=== PATIENT | male | born 1955 | race Caucasian/White ===

== ENCOUNTER → 2017-01-28 | Outpatient (CLI) | payer MEDICAID, MEDICARE ==
[~2017-01-28] MED LIST: ALPR2TAB2 PO; CYCL10TA9; CYMBALTA; DULO60CA6 PO; ESCI20TA2; MIRT30TA PO; NF-ESOM40C PO; OXYC30TA PO; RELEFEN; Remeron; TIZA4CAP PO; TRAZ300T3
--- NOTE | 2017-01-28 17:20 | Diagnostic Imaging Report ---
EXAMINATION: PET-CT TECHNIQUE: Serum glucose level at the time of the study is: 99 mg/dL. 12.3 mCi of FDG was administered intravenously followed by obtaining PET images with corresponding noncontrast CT scan images. The CT scan was performed for anatomic correlation and attenuation correction and was not performed according to the diagnostic protocol of the areas covered. The scan was performed from the head to mid thighs. 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 FINDINGS: There is a left parotid space mass measuring 4.8 x 3.2 cm with avid FDG uptake and maximum SUV of 18.8. No other suspicious mass or significantly enlarged hypermetabolic lymph nodes are seen in the neck. The brain demonstrates symmetric FDG uptake. There is mild to moderate increased FDG uptake along lateral left paraspinal muscles in the posterior left side of the neck probably related to physiologic uptake with no definitive underlying mass seen on the localizer CT. If the patient has symptoms in the posterior left side of the neck, then MRI can better evaluate the soft tissues and rule out a corresponding intramuscular mass. There is moderate hypermetabolism seen in the right hilum with maximum SUV of 5.5. There is soft tissue fullness in this region on the unenhanced exam CT. In this location, this could represent a hilar lymph node or potentially a central lung nodule. There is another focus of hypermetabolism more anteriorly and medially seen within the medial aspect of the right middle lobe. In the abdomen or pelvis, there is excretion of the tracer in the urinary tract with no suspicious hypermetabolic mass seen. Nonspecific mild increased FDG activity in the osseous structures is noted with no intense hypermetabolic osseous mass to suggest metastasis is identified. IMPRESSION: 1. There is a dominant markedly avid hypermetabolic large mass seen in the left parotid gland. 2. There is moderate hypermetabolism in medial right middle lobe pulmonary nodule measuring 2.3 cm and a right hilar lymph node. 3. 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 Dictated by: Dictated on workstation # [id number]
== END ==
LOC: RAD 07:56
PROVIDERS: ATTEND Internal Medicine Hematology & Oncology
DX: C80.1 Malignant (primary) neoplasm, unspecified (principal); R22.1 Localized swelling, mass and lump, neck; R91.1 Solitary pulmonary nodule

== ENCOUNTER 2017-01-31 05:47 | Outpatient (CLI) | payer MEDICARE, MEDICAID ==
[~2017-01-31] VITALS: Ht 182.9 cm; Wt 86.2 kg
[2017-01-31] MEDS ORDERED: GABA-490 PO (12:19)
[2017-01-31] MEDS ORDERED: OMEP40CA36 PO (12:19)
[2017-01-31] MEDS ORDERED: MORP60TA52 PO (12:19)
[2017-01-31] MEDS ORDERED: FLUT1AER IH (12:19)
[2017-01-31] MEDS ORDERED: QUET300T44 PO (12:19)
[2017-01-31] MEDS ORDERED: QUET25TA73 PO (12:19)
[2017-01-31] MEDS ORDERED: NABU500T PO (12:19)
[2017-01-31] MEDS ORDERED: CLON1TAB27 PO (12:19)
[2017-01-31] MEDS ORDERED: RT-ALBUINH IH (12:19)
[2017-01-31] MEDS ORDERED: TIZA4CAP8 PO (12:19)
--- NOTE | 2017-02-05 08:59 | Pulmonary Procedures ---
Pulmonary Procedures Date of Procedure Date of Service: Feb 05, 2017 Bronch Bronchoscopy with RML BAL, EBUS with bx of station 7 and 10R lymph nodes Preop DX: [mediastinal lymphadenopathy] PostOP DX: same, no endobronchial lesions Complications: None Pt was sedated per anesthesia. Bronchoscopy was advanced through the ED tube and an anatomical undertaken down to the segmental bronchi bilaterally. No endobronchial lesions noted. BAL from RML was obtained. EBUS was then advanced through ET tube and the mediastinum was US. Station [7] and [10R] lymph nodes were sampled via needle bx under US guidance. Pt tolerated procedure well. No complications noted. ELY STREETER DO Feb 05, 2017 08:59
--- NOTE | 2017-02-05 09:00 | Progress Note-Pre Operative ---
Pre-Operative Progress Note H&P Reviewed The H&P was reviewed, patient examined and no changes noted. Date Seen by Provider: Feb 05, 2017 Time Seen by Provider: 08:59 Date H&P Reviewed: Feb 05, 2017 Time H&P Reviewed: 08:59 Pre-Operative Diagnosis: lung mass ELY STREETER DO Feb 05, 2017 08:59
== END 2017-01-31 12:20 ==
LOC: PREOP 05:47
PROVIDERS: ATTEND Internal Medicine Critical Care Medicine
DX: Z01.818 Encounter for other preprocedural examination (principal); J45.909 Unspecified asthma, uncomplicated; J44.9 Chronic obstructive pulmonary disease, unspecified

== ENCOUNTER 2017-02-05 07:30 | Day surgery (SDC) | payer MEDICAID, MEDICARE ==
[~2017-02-05] VITALS: Ht 182.9 cm; Wt 86.2 kg
[~2017-02-05 07:30] MED LIST changes: +CLON1TAB27 PO; +FLUT1AER IH; +GABA-490 PO; +LIDOCAINE 4% INJ (XYLOCAINE) 5ML AMP INJ ONE; +LIDOCAINE PF 1% 2 ML AMP INJ ONE; +MORP60TA52 PO; +NABU500T PO; +OMEP40CA36 PO; +QUET25TA73 PO; +QUET300T44 PO; +RT-ALBUINH IH; +TIZA4CAP8 PO
--- OUTSIDE RECORDS SUMMARY | 2017-02-05 07:35 | XMS REPORT ---
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
--- OUTSIDE RECORDS SUMMARY | 2017-02-05 07:35 | XMS REPORT ---
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 [address]-84 10 mg Orally 3 times a day Feb 20, 2015 1 tablet as needed MS Contin [facility] [address]-48 60 mg Orally every 12 hrs Mar 06, 2015 1 tablet Results No Known Results Summary Purpose [employer] Submission
--- OUTSIDE RECORDS SUMMARY | 2017-02-05 07:35 | XMS REPORT ---
Author FARZAD Donovan Organization [employer] Address Unknown Phone Unavailable Care Team Providers Care Features Editor Name Role Phone FARZAD GONZÁLES Unavailable Allergies [...] Z87.39 Active Problem Anxiety F41.9 Active Medications No Known Medications Results No Known Results Summary Purpose [employer] Submission
--- OUTSIDE RECORDS SUMMARY | 2017-02-05 07:35 | XMS REPORT ---
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 Active 131437691 Problem Gastroesophageal reflux disease without esophagitis K21.9 Active 649528805 Problem Other chronic pain G89.29 Active 44642263 Problem Other male erectile dysfunction N52.8 Active 658183192 Problem Chronic obstructive pulmonary disease with acute exacerbation J44.1 Active 179729942 Problem History of chronic back pain Z87.39 Active 377292326 Problem Depression F32.9 Active 08566728 Problem GERD (gastroesophageal reflux disease) K21.9 Active 171818378 Problem Hallucinogen psychosis, 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 023021809 Problem Anxiety F41.9 Active 94760924 ALLERGIES No Information SOCIAL HISTORY Never Assessed PLAN OF CARE VITAL SIGNS MEDICATIONS Medication Instructions Dosage Frequency Start Date End Date Duration Status Oxycodone HCl 10 mg Orally 3 times a day 1 tablet as needed 8h Mar, 28 days Active Xanax 1 MG Orally 2 times a day 1 tablet 12h Nov, 28 days Active Soma 350 MG Orally 3 times a day 1 tablet as needed 8h Dec, 28 days Active MS Contin 60 mg Orally every 12 hrs 1 tablet 12h Mar, 28 days Active RESULTS No Results PROCEDURES No Known procedures IMMUNIZATIONS No Known Immunizations MEDICAL (GENERAL) HISTORY Type Description Date Medical History chronic pain, back, leg, knee hip, arm and shoulder Medical History depression Medical History anxiety Surgical History left knee surgery Hospitalization History surgery Hospitalization History pneumonia Hospitalization History mental health stay 12/06/14 Hospitalization History went to ER to see if would give meds and would not help with meds. 04/2015
--- OUTSIDE RECORDS SUMMARY | 2017-02-05 07:35 | XMS REPORT ---
Author Author FARZAD GONZÁLES Organization [facility] Address [address] [place] [address] Care Team Providers Care Manufacturer'S Service Representative Name Role Phone NINFA GONZÁLESNETTE Unavailable PROBLEMS Type Condition ICD9-CM Code [id number] Code Onset Dates Condition Status SNOMED Code Problem Insomnia G47.00 Active 821381650 Problem Alcohol abuse F10.10 Active 29272245 Problem B12 deficiency anemia D51.9 Active 72492580 Problem Chronic fatigue R53.82 Active 13992073 Problem 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 Active 005688254 Problem Gastroesophageal reflux disease without esophagitis K21.9 Active 952313705 Problem Other chronic pain G89.29 Active 33565403 Problem Other male erectile dysfunction N52.8 Active 326377056 Problem Chronic obstructive pulmonary disease with acute exacerbation J44.1 Active 586823992 Problem History of chronic back pain Z87.39 Active 826648607 Problem Depression F32.9 Active 59314748 Problem GERD (gastroesophageal reflux disease) K21.9 Active 604610251 Problem Hallucinogen psychosis, 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
--- OUTSIDE RECORDS SUMMARY | 2017-02-05 07:35 | XMS REPORT ---
Author Author FARZAD GONZÁLES Organization [facility] Address [address] [place] [address] Care Team Providers Care Sawyer Cork Slabs Name Role Phone NINFA GONZÁLESNETTE Unavailable PROBLEMS Type Condition ICD9-CM Code [id number] Code Onset Dates Condition Status SNOMED Code Problem Insomnia G47.00 Active 245422009 Problem Alcohol abuse F10.10 Active 61865352 Problem B12 deficiency anemia D51.9 Active 58549967 Problem Chronic fatigue R53.82 Active 12835895 Problem 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 Active 413810082 Problem Gastroesophageal reflux disease without esophagitis K21.9 Active 179162181 Problem Other chronic pain G89.29 Active 53016956 Problem Other male erectile dysfunction N52.8 Active 588528568 Problem Chronic obstructive pulmonary disease with acute exacerbation J44.1 Active 031170110 Problem History of chronic back pain Z87.39 Active 036890154 Problem Depression F32.9 Active 82730717 Problem GERD (gastroesophageal reflux disease) K21.9 Active 036380759 Problem Hallucinogen psychosis, 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 470050507 Problem Anxiety F41.9 Active 87390613 ALLERGIES Unknown Allergies SOCIAL HISTORY No smoking Hx information available PLAN OF CARE VITAL SIGNS MEDICATIONS Medication Instructions Dosage Frequency Start Date End Date Duration Status MS Contin 60 mg Orally every 12 hrs 1 tablet 12h Feb, 28 days Active Soma 350 MG Orally 3 times a day 1 tablet as needed 8h Dec, 28 days Active Xanax 1 MG Orally 2 times a day 1 tablet 12h Nov, 28 days Active Oxycodone HCl 10 mg Orally 3 times a day 1 tablet as needed 8h Feb, 28 days Active RESULTS No Results PROCEDURES No Known procedures IMMUNIZATIONS No Known Immunizations
--- OUTSIDE RECORDS SUMMARY | 2017-02-05 07:35 | XMS REPORT ---
Author Author FARZAD GONZÁLES Organization [facility] Address [address] [place] [address] Care Team Providers Care Solar Panel Installation Supervisor Name Role Phone FARZAD GONZÁLES Unavailable PROBLEMS Type Condition ICD9-CM Code [id number] Code Onset Dates Condition Status SNOMED Code Problem Insomnia G47.00 Active 878025717 Problem Alcohol abuse F10.10 Active 77416602 Problem B12 deficiency anemia D51.9 Active 52229246 Problem Chronic fatigue R53.82 Active 40484866 Problem 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 Active 199442917 Problem Gastroesophageal reflux disease without esophagitis K21.9 Active 246016469 Problem Other chronic pain G89.29 Active 67041863 Problem Other male erectile dysfunction N52.8 Active 170096637 Problem Chronic obstructive pulmonary disease with acute exacerbation J44.1 Active 614039038 Problem History of chronic back pain Z87.39 Active 435630441 Problem Depression F32.9 Active 96893262 Problem GERD (gastroesophageal reflux disease) K21.9 Active 234661717 Problem Hallucinogen psychosis, 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
--- OUTSIDE RECORDS SUMMARY | 2017-02-05 07:35 | XMS REPORT ---
Author FARZAD Donovan [facility] e[employer] Address Unknown Phone Unavailable Care Team Providers Care Preschool Director Name Role Phone FARZAD GONZÁLES Unavailable Allergies, Adverse Reactions, Alerts Substance Reaction Event Type N.K.D.A. 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 [address]-97 1 MG Orally 3 times a day Dec 19, 2014 1 tablet Nabumetone [facility] [address]-67 500 MG Orally Twice a day 1 tablet Remeron [facility] [address]-34 30 MG Orally Once a day 1 tablet before bedtime in the evening Seroquel [facility] [address]-61 50 MG Orally four times a day and 100 mg at bedtime 1 tablet Oxycodone HCl [facility] [address]-55 30 MG Orally every 6 hrs 1 tablet as needed Nexium [facility] [address]-58 40 MG Orally Once a day 1 capsule Zanaflex [facility] [address]-03 4 MG Orally every 8 hrs 1 tablet as needed Cymbalta [facility] [address]-56 60 MG Orally Once a day 1 capsule Procedures Procedure Coding System Code Date Office Visit, New Pt., Level 4 CPT-4 01337 Dec 19, 2014 Vital Signs Date/Time: Dec 19, 2014 Temperature 98.5 F Weight 183 lbs Height 72 in BMI 24.82 Index Blood Pressure Diastolic 86 mmHg Blood Pressure Systolic 140 mmHg Cardiac Monitoring Heart Rate 84 bpm Results No Known Results Summary Purpose eClinicalWorks Submission
--- OUTSIDE RECORDS SUMMARY | 2017-02-05 07:35 | XMS REPORT ---
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 Active 426597198 Problem Gastroesophageal reflux disease without esophagitis K21.9 Active 062130397 Problem Other chronic pain G89.29 Active 73523608 Problem Other male erectile dysfunction N52.8 Active 179017901 Problem Chronic obstructive pulmonary disease with acute exacerbation J44.1 Active 627765751 Problem History of chronic back pain Z87.39 Active 058370610 Problem Depression F32.9 Active 32585537 Problem GERD (gastroesophageal reflux disease) K21.9 Active 832792178 Problem Hallucinogen psychosis, 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
--- OUTSIDE RECORDS SUMMARY | 2017-02-05 07:35 | XMS REPORT ---
Author FARZAD Donovan Organization [employer] Address Unknown Phone Unavailable Care Team Providers Care Bilingual Sales Consultant Name Role Phone FARZAD GONZÁLES CP Unavailable [...]
--- OUTSIDE RECORDS SUMMARY | 2017-02-05 07:35 | XMS REPORT ---
Author Author FARZAD GONZÁLES Organization [facility] Address [address] [place] [address] Care Team Providers Care Plant Physiologist Name Role Phone GONZÁLES FARZAD Unavailable PROBLEMS Type Condition ICD9-CM Code [id number] Code Onset Dates Condition Status SNOMED Code Problem Insomnia G47.00 Active 766515400 Problem Alcohol abuse F10.10 Active 77161714 Problem B12 deficiency anemia D51.9 Active 86464948 Problem Chronic fatigue R53.82 Active 59335823 Problem 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 Active 011403972 Problem Gastroesophageal reflux disease without esophagitis K21.9 Active 257010309 Problem Other chronic pain G89.29 Active 24359984 Problem Other male erectile dysfunction N52.8 Active 186216723 Problem Chronic obstructive pulmonary disease with acute exacerbation J44.1 Active 390789138 Problem History of chronic back pain Z87.39 Active 855996316 Problem Depression F32.9 Active 54964117 Problem GERD (gastroesophageal reflux disease) K21.9 Active 409871060 Problem Hallucinogen psychosis, 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
--- OUTSIDE RECORDS SUMMARY | 2017-02-05 07:36 | XMS REPORT ---
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
--- OUTSIDE RECORDS SUMMARY | 2017-02-05 07:36 | XMS REPORT ---
Author FARZAD Donovan [facility] e[employer] Address Unknown Phone Unavailable Care Team Providers Care Retail Branch Manager Name Role Phone FARZAD GONZÁLES Unavailable Allergies, Adverse Reactions, Alerts Substance Reaction Event Type N.K.D.A. 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 Problem History of chronic back pain Z87.39 Active Problem Anxiety F41.9 Active Assessment B12 deficiency anemia D51.9 Active Assessment Insomnia G47.00 Active Assessment Depression F32.9 Active Assessment Anxiety F41.9 Active Assessment Hallucinogen psychosis, 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 Medications Medication Code System Code Instructions Start Date End Date Status Dosage Seroquel [facility] [address]-78 25 MG Orally 3 times a day Feb 20, 2015 1 tablet Omeprazole [facility] [address]-41 40 mg Orally Once a day June 27, 2015 1 capsule Gabapentin [facility] [address]-98 400 MG Orally Three times a day Mar 06, 2015 1 capsule B Complex Vitamins [place] 0 1 Orally Once a day May 30, 2015 as directed Cymbalta [facility] [address]-14 60 mg Orally Once a day 1 capsule Soma [facility] [address]-34 350 MG Orally 4 times a day Jan 02, 2015 1 tablet as needed Oxycodone HCl [facility] [address]-22 10 mg Orally 3 times a day Feb 20, 2015 1 tablet as needed Nabumetone [facility] [address]-42 500 MG Orally Twice a day 1 tablet Seroquel [facility] [address]-37 100 MG Orally Once a day June 27, 2015 1 tablet at bedtime Nabumetone [facility] [address]-26 500 MG Orally Twice a day September 20, 2015 Dec 19, 2015 1 tablet Nexium [facility] [address]-36 40 MG Orally Once a day 1 capsule MS Contin [facility] [address]-29 60 mg Orally every 12 hrs Mar 06, 2015 1 tablet Xanax [facility] [address]-87 1 MG Orally 3 times a day Dec 19, 2014 1 tablet Procedures Procedure Coding System Code Date Office Visit, Est Pt., Level 4 CPT-4 03986 September 20, 2015 Vital Signs Date/Time: September 20, 2015 Cardiac Monitoring Heart Rate 80 bpm Weight 180 lbs Height 72 in BMI 24.41 Index Blood Pressure Diastolic 56 mmHg Blood Pressure Systolic 97 mmHg Results No Known Results Summary Purpose eClinicalWorks Submission
--- OUTSIDE RECORDS SUMMARY | 2017-02-05 07:36 | XMS REPORT ---
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
--- OUTSIDE RECORDS SUMMARY | 2017-02-05 07:36 | XMS REPORT ---
Author FARZAD Donovan Organization [employer] Address Unknown Phone Unavailable Care Team Providers Care Data Security Analyst Name Role Phone FARZAD GONZÁLES Unavailable Allergies [...]
--- OUTSIDE RECORDS SUMMARY | 2017-02-05 07:36 | XMS REPORT ---
Author Author DEON SPENCE [facility] Address [address] [place] [address] Care Team Providers Care Farm Management Professor Name Role Phone DEON SPENCE Unavailable PROBLEMS Type Condition ICD9-CM Code BDN98-IE Code Onset Dates Condition Status SNOMED Code Problem Insomnia G47.00 Active 632965343 Problem Alcohol abuse F10.10 Active 57797732 Problem B12 deficiency anemia D51.9 Active 20762212 Problem Chronic fatigue R53.82 Active 35835324 Problem 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 Active 220506713 Problem Gastroesophageal reflux disease without esophagitis K21.9 Active 807003567 Problem Other chronic pain G89.29 Active 59833340 Problem Other male erectile dysfunction N52.8 Active 292561880 Problem Chronic obstructive pulmonary disease with acute exacerbation J44.1 Active 539398024 Problem History of chronic back pain Z87.39 Active 931860456 Problem Depression F32.9 Active 40020943 Problem GERD (gastroesophageal reflux disease) K21.9 Active 197933888 Problem Hallucinogen psychosis, 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
--- OUTSIDE RECORDS SUMMARY | 2017-02-05 07:36 | XMS REPORT ---
Author FARZAD Donovan [facility] eClinicalWorks Address Unknown Phone Unavailable Care Team Providers Care Senior Wind Turbine Technician Name Role Phone FARZAD GONZÁLES Unavailable Allergies, [...] Instructions Start Date End Date Status Dosage Cymbalta [facility] [address]-14 60 MG Orally Once a day 1 capsule Nabumetone [facility] [address]-12 500 MG Orally Twice a day 1 tablet Soma [facility] [address]-37 350 MG Orally 2 times a day Jan 02, 2015 1 tablet as needed Xanax [facility] [address]-82 1 MG Orally 3 times a day Dec 19, 2014 1 tablet Oxycodone HCl [facility] [address]-63 30 MG Orally every 6 hrs 1 tablet as needed Remeron [facility] [address]-72 30 MG Orally Once a day 1 tablet before bedtime in the evening Nexium [facility] [address]-33 40 MG Orally Once a day 1 capsule Seroquel [facility] [address]-00 50 MG Orally four times a day and 100 mg at bedtime 1 tablet Procedures Procedure Coding System Code Date Office Visit, Est Pt., Level 4 CPT-4 30305 Jan 02, 2015 Vital Signs Date/Time: Jan 02, 2015 Temperature 98.7 F Weight 179.1 lbs Height 72 in BMI 24.29 Index Blood Pressure Diastolic 68 mmHg Blood Pressure Systolic 112 mmHg Cardiac Monitoring Heart Rate 80 bpm Results No Known Results Summary Purpose eClinicalWorks Submission
--- OUTSIDE RECORDS SUMMARY | 2017-02-05 07:36 | XMS REPORT ---
Author FARZAD Donovan [facility] eClinicalWorks Address Unknown Phone Unavailable Care Team Providers Care Store Detective Name Role Phone FARZAD GONZÁLES Unavailable Allergies, Adverse Reactions, Alerts Substance Reaction Event Type N.K.D.A. Info Not Available Non Drug Allergy Problems Problem Type Condition Code Onset Dates Condition Status Assessment Anxiety F41.9 Active Problem Depression F32.9 Active Assessment History [...] G47.00 Active Assessment Depression F32.9 Active Assessment Alcohol abuse F10.10 Active Assessment GERD (gastroesophageal reflux disease) K21.9 Active Medications Medication Code System Code Instructions Start Date End Date Status Dosage Seroquel [facility] [address]-88 100 MG Orally Once a day Jan 30, 2015 1 tablet at bedtime Oxycodone HCl [facility] [address]-46 10 MG Orally 2 times a day Feb 20, 2015 1 tablet as needed Seroquel [facility] [address]-04 25 MG Orally 3 times a day Feb 20, 2015 1 tablet Soma [facility] [address]-88 350 MG Orally 2 times a day Jan 02, 2015 1 tablet as needed Nabumetone [facility] [address]-49 500 MG Orally Twice a day 1 tablet Nexium [facility] [address]-68 40 MG Orally Once a day 1 capsule Xanax [facility] [address]-57 1 MG Orally 3 times a day Dec 19, 2014 1 tablet Remeron [facility] [address]-83 30 MG Orally Once a day 1 tablet before bedtime in the evening Cymbalta [facility] [address]-55 60 MG Orally Once a day 1 capsule OxyContin [facility] [address]-52 60 MG Orally every 12 hrs Feb 20, 2015 1 tablet Procedures Procedure Coding System Code Date VITAMIN B-12 CPT-4 77499 Feb 20, 2015 BLOOD FOLIC ACID SERUM CPT-4 00375 Feb 20, 2015 COMPLETE CBC W/AUTO DIFF WBC CPT-4 49946 Feb 20, 2015 LIPID PANEL CPT-4 77000 Feb 20, 2015 COMPREHEN METABOLIC PANEL CPT-4 89054 Feb 20, 2015 VENIPUNCT, ROUTINE* CPT-4 35530 Feb 20, 2015 Office Visit, Est Pt., Level 4 CPT-4 59284 Feb 20, 2015 Vital Signs Date/Time: Feb 20, 2015 Temperature 97.1 F Weight 165.6 lbs Height 72 in BMI 22.46 Index Blood Pressure Diastolic 64 mmHg Blood Pressure Systolic 110 mmHg Cardiac Monitoring Heart Rate 68 bpm Results Name Result Date Reference Range Unit Abnormality Flag FOLATE (FOLIC ACID) ----Folate (Folic Acid), Serum >20.0 [id number] >3.0 ng/mL CBC ----Basos 0 97481634 % ----MCV 84 41553495 79-97 fL ----Hematocrit 45.8 06530677 37.5-51.0 % ----Eos 1 29568431 % ----MCHC 34.3 51832127 31.5-35.7 g/dL ----Monocytes 9 44922133 % ----MCH 28.8 61234332 26.6-33.0 pg ----Lymphs 21 74232417 % ----Eos (Absolute) 0.1 27223292 0.0-0.4 x10E3/uL ----WBC 11.2 83689132 3.4-10.8 x10E3/uL H ----Monocytes(Absolute) 1.0 14679220 0.1-0.9 x10E3/uL H ----Lymphs (Absolute) 2.3 74120663 0.7-3.1 x10E3/uL ----Hemoglobin 15.7 40420077 12.6-17.7 g/dL ----Neutrophils (Absolute) 7.8 38262404 1.4-7.0 x10E3/uL H ----RBC 5.46 46702513 4.14-5.80 x10E6/uL ----Immature Grans (Abs) 0.0 30578476 0.0-0.1 x10E3/uL ----Immature Granulocytes 0 39691823 % ----Neutrophils 69 74965388 % ----Baso (Absolute) 0.0 59827351 0.0-0.2 x10E3/uL ----RDW 15.3 27583225 12.3-15.4 % ----Platelets 316 89240689 150-379 x10E3/uL ROUTINE VENIPUNCTURE VITAMIN B12 ----Vitamin B12 1682 95069550 211-946 pg/mL H LIPID PANEL ----LDL Cholesterol Calc 127 51763616 0-99 mg/dL H ----VLDL Cholesterol Rad 23 78708832 5-40 mg/dL ----HDL Cholesterol 71 54168616 >39 mg/dL ----Triglycerides 113 88215414 0-149 mg/dL ----Cholesterol, Total 221 58725877 100-199 mg/dL H CMP ----Creatinine, Serum 0.83 64539140 0.76-1.27 mg/dL ----BUN 12 98981731 6-24 mg/dL ----eGFR If Africn Am 112 92531255 >59 mL/min/1.73 ----eGFR If NonAfricn Am 97 98691328 >59 mL/min/1.73 ----Sodium, Serum 137 31702920 134-144 mmol/L ----BUN/Creatinine Ratio 14 20150220 9-20 ----Chloride, Serum 97 03828343 97-108 mmol/L ----Potassium, Serum 3.8 02348781 3.5-5.2 mmol/L ----Carbon Dioxide, Total 24 69505432 18-29 mmol/L ----Protein, Total, Serum 7.6 60091321 6.0-8.5 g/dL ----Calcium, Serum 9.4 11807635 8.7-10.2 mg/dL ----Globulin, Total 3.1 49502655 1.5-4.5 g/dL ----Albumin, Serum 4.5 20150220 3.5-5.5 g/dL ----Bilirubin, Total 0.3 20150220 0.0-1.2 mg/dL ----Glucose, Serum 120 20150220 65-99 mg/dL H ----A/G Ratio 1.5 20150220 1.1-2.5 ----ALT (SGPT) 61 20150220 0-44 IU/L H ----Alkaline Phosphatase, S 108 20150220 39-117 IU/L ----AST (SGOT) 48 05239738 0-40 IU/L H Summary Purpose eClinicalWorks Submission
--- OUTSIDE RECORDS SUMMARY | 2017-02-05 07:36 | XMS REPORT ---
Author FARZAD Donovan Organization eClinicalWorks Address Unknown Phone Unavailable Care Team Providers Care Speech Pathology Supervisor Name Role Phone FARZAD GONZÁLES Unavailable Allergies [...] Instructions Start Date End Date Status Dosage [facility] [address]-33 350 MG Orally 4 times a day Jan 02, 2015 1 tablet as needed Results No Known Results Summary Purpose eClinicalWorks Submission
--- OUTSIDE RECORDS SUMMARY | 2017-02-05 07:36 | XMS REPORT ---
Author FARZAD Donovan Organization eClinicalWorks Address Unknown Phone Unavailable Care Team Providers Care Electrical Transmission Engineer Name Role Phone FARZAD GONZÁLES Unavailable Allergies [...]
--- OUTSIDE RECORDS SUMMARY | 2017-02-05 07:36 | XMS REPORT ---
Author FARZAD Donovan Organization eClinicalWorks Address Unknown Phone Unavailable Care Team Providers Care Entomology Teacher Name Role Phone FARZAD GONZÁLES Unavailable Allergies [...] Start Date End Date Status Dosage Xanax [facility] [address]-88 1 MG Orally 3 times a day Dec 19, 2014 1 tablet Oxycodone HCl [facility] [address]-92 10 mg Orally 3 times a day Jan 10, 2016 1 tablet as needed MS Contin [facility] [address]-65 60 mg Orally every 12 hrs Jan 10, 2016 1 tablet Results No Known Results Summary Purpose eClinicalWorks Submission
--- OUTSIDE RECORDS SUMMARY | 2017-02-05 07:36 | XMS REPORT ---
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
--- OUTSIDE RECORDS SUMMARY | 2017-02-05 07:36 | XMS REPORT ---
Author Author FARZAD GONZÁLES Organization [facility] Address [address] [place] [address] Care Team Providers Care Dramatic Critic Name Role Phone FARZAD GONZÁLES Unavailable PROBLEMS Type Condition ICD9-CM Code EBF27-PW Code Onset Dates Condition Status SNOMED Code Problem Insomnia G47.00 Active 300907833 Problem Alcohol abuse F10.10 Active 12458242 Problem B12 deficiency anemia D51.9 Active 01162836 Problem Chronic fatigue R53.82 Active 01510680 Problem 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 Active 933662680 Problem Gastroesophageal reflux disease without esophagitis K21.9 Active 590243294 Problem Other chronic pain G89.29 Active 27370799 Problem Other male erectile dysfunction N52.8 Active 067878947 Problem Chronic obstructive pulmonary disease with acute exacerbation J44.1 Active 481277087 Problem History of chronic back pain Z87.39 Active 906234863 Problem Depression F32.9 Active 75611374 Problem GERD (gastroesophageal reflux disease) K21.9 Active 907723195 Problem Hallucinogen psychosis, 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
--- OUTSIDE RECORDS SUMMARY | 2017-02-05 07:37 | XMS REPORT ---
Author FARZAD Donovan Organization eClinicalWorks Address Unknown Phone Unavailable Care Team Providers Care Wool Fleece Sorter Name Role Phone FARZAD GONZÁLES CP Unavailable [...]
--- OUTSIDE RECORDS SUMMARY | 2017-02-05 07:37 | XMS REPORT ---
Author FARZAD Donovan [facility] eClinicalWorks Address Unknown Phone Unavailable Care Team Providers Care Getter Filler Name Role Phone FARZAD GONZÁLES Unavailable Allergies, [...] Instructions Start Date End Date Status Dosage Nabumetone [facility] [address]-19 500 MG Orally Twice a day 1 tablet Seroquel [facility] [address]-21 25 MG Orally 3 times a day Feb 20, 2015 1 tablet Oxycodone HCl [facility] [address]-81 10 MG Orally 2 times a day Feb 20, 2015 1 tablet as needed MS Contin [facility] [address]-45 60 MG Orally every 12 hrs Mar 06, 2015 1 tablet Cymbalta [facility] [address]-25 60 MG Orally Once a day 1 capsule Gabapentin [facility] [address]-43 400 MG Orally Three times a day Mar 06, 2015 1 capsule Remeron [facility] [address]-12 30 MG Orally Once a day 1 tablet before bedtime in the evening MS Contin [facility] [address]-93 60 MG Orally every 12 hrs Mar 06, 2015Mar 1 tablet Soma [facility] [address]-37 350 MG Orally 2 times a day Jan 02, 2015 1 tablet as needed Seroquel [facility] [address]-92 100 MG Orally Once a day Jan 30, 2015 1 tablet at bedtime Xanax [facility] [address]-52 1 MG Orally 3 times a day Dec 19, 2014 1 tablet Nexium [facility] [address]-74 40 MG Orally Once a day 1 capsule Procedures Procedure Coding System Code Date Office Visit, Est Pt., Level 4 CPT-4 60141 Mar 06, 2015 Vital Signs Date/Time: Mar 06, 2015 Temperature 98.9 F Weight 170.2 lbs Height 72 in BMI 23.08 Index Blood Pressure Diastolic 90 mmHg Blood Pressure Systolic 128 mmHg Cardiac Monitoring Heart Rate 88 bpm Results No Known Results Summary Purpose eClinicalWorks Submission
--- OUTSIDE RECORDS SUMMARY | 2017-02-05 07:37 | XMS REPORT ---
Author Author FARZAD GONZÁLES Organization [facility] Address [address] [place] [address] Care Team Providers Care Material Requirements Planning Manager Name Role Phone NINFA GONZÁLESNETTE Unavailable PROBLEMS Type Condition ICD9-CM Code QCT09-XL Code Onset Dates Condition Status SNOMED Code Problem Alcohol abuse F10.10 Active 85682663 Problem Gastroesophageal reflux disease without esophagitis K21.9 Active 185366895 Problem Other chronic pain G89.29 Active 09109764 Problem Encounter for therapeutic drug level monitoring Z51.81 Active 350311084 Problem Insomnia, unspecified type G47.00 Active 288926615 Problem Other male erectile dysfunction N52.8 Active 735994916 Problem Chronic obstructive pulmonary disease with acute exacerbation J44.1 Active 697985145 Problem Chronic fatigue R53.82 Active 80127752 Problem 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 Active 440248835 Problem Hallucinogen psychosis, 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 835592249 Problem GERD (gastroesophageal reflux disease) K21.9 Active 307625974 Problem Anxiety F41.9 Active 63829992 Problem History of chronic back pain Z87.39 Active 649999895 Problem Insomnia G47.00 Active 583890168 Problem Depression F32.9 Active 54766955 Problem B12 deficiency anemia D51.9 Active 65986476 ALLERGIES No Information SOCIAL HISTORY Never Assessed PLAN OF CARE VITAL SIGNS MEDICATIONS Medication Instructions Dosage Frequency Start Date End Date Duration Status Oxycodone HCl 10 mg Orally 2 times a day 1 tablet as needed 12h Jul, 28 Active MS Contin 60 mg Orally every 12 hrs 1 tablet 12h Jul, 28 days Active Xanax 1 MG Orally 2 times a day 1 tablet 12h 28 days Active Morphine Sulfate ER 15 mg Orally every 12 hrs 1 tablet 12h Jul, 28 days Active RESULTS No Results PROCEDURES [...]
--- OUTSIDE RECORDS SUMMARY | 2017-02-05 07:37 | XMS REPORT ---
Author FARZAD Donoavn Organization eClinicalWorks Address Unknown Phone Unavailable Care Team Providers Care Air Cargo Agent Name Role Phone FARZAD GONZÁLES Unavailable Allergies [...] Start Date End Date Status Dosage Seroquel [facility] [address]-88 100 MG Orally Once a day Jan 30, 2015 1 tablet at bedtime Nabumetone [facility] [address]-02 500 MG Orally Twice a day 1 tablet Cymbalta [facility] [address]-00 60 mg Orally Once a day 1 capsule Nexium [facility] [address]-33 40 mg Orally Once a day 1 capsule Gabapentin [facility] [address]-77 400 MG Orally Three times a day Mar 06, 2015 1 capsule Results No Known Results Summary Purpose eClinicalWorks Submission
--- OUTSIDE RECORDS SUMMARY | 2017-02-05 07:37 | XMS REPORT ---
Author Author FARZAD GONZÁLES Organization [facility] Address [address] [place] [address] Care Team Providers Care Bull Ladle Tender Name Role Phone NINFA GONZÁLESNETTE Unavailable PROBLEMS Type Condition ICD9-CM Code BQL09-LI Code Onset Dates Condition Status SNOMED Code Problem B12 deficiency anemia D51.9 Active 40620004 Problem Other chronic pain G89.29 Active 51293355 Problem Alcohol abuse F10.10 Active 09219428 Problem Insomnia, unspecified type G47.00 Active 291928529 Problem Chronic fatigue R53.82 Active 38680894 Problem Chronic obstructive pulmonary disease with acute exacerbation J44.1 Active 172856596 Problem Gastroesophageal reflux disease without esophagitis K21.9 Active 345051624 Problem 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 Active 143220150 Problem Other male erectile dysfunction N52.8 Active 074908262 Problem Depression F32.9 Active 13749501 Problem GERD (gastroesophageal reflux disease) K21.9 Active 217397975 Problem Hallucinogen psychosis, 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 572401360 Problem Anxiety F41.9 Active 84031416 Problem History of chronic back pain Z87.39 Active 163749927 Problem Insomnia G47.00 Active 080361357 ALLERGIES No Known Allergies SOCIAL HISTORY Never Assessed PLAN OF CARE Activity Details Follow Up 2 Weeks Reason:copd VITAL SIGNS Height 72 in 2016-07-01 Weight 200 lbs 2016-07-01 Temperature 98.1 degrees Fahrenheit 2016-07-01 Heart Rate 78 bpm 2016-07-01 Respiratory Rate 18 2016-07-01 BMI 27.12 kg/m2 2016-07-01 Blood pressure systolic 116 mmHg 2016-07-01 Blood pressure diastolic 78 mmHg 2016-07-01 MEDICATIONS Medication Instructions Dosage Frequency Start Date End Date Duration Status MS Contin 60 mg Orally every 12 hrs 1 tablet June, Active Morphine Sulfate ER 15 mg Orally every 12 hrs 1 tablet 12June, June, 23 days Active Cymbalta 60 mg Orally Once a day 1 capsule 24h Active Seroquel 200 mg Orally Once a day at bedtime 1 tablet at bedtime June, 30 days Active Xanax 1 MG Orally 2 times a day 1 tablet 12h Active Seroquel 25 MG Orally 3 times a day 1 tablet 8h 28 Jan, 2015 30 days Active Oxycodone HCl 10 mg Orally 2 times a day 1 tablet as needed 12h June, 28 Active Nabumetone 500 MG Orally Twice a day 1 tablet 12h 90 days Active B Complex Vitamins 1 Orally Once a day as directed 24h May, Active Tizanidine HCl 4 MG Orally 3 times a day 1 tablet as needed 8h 24 May, 2016 Mar, 90 days Active Gabapentin 400 mg Orally 3 times a day 1 capsule 8h 11 Feb, 2015 Active Omeprazole 40 mg Orally Once a day 1 capsule 24h June, Active ProAir HFA 108 (90 Base) MCG/ACT Inhalation every 4 hrs 2 puffs as needed 4h June, Active Doxycycline Hyclate 100 mg Orally every 12 hrs 1 capsule 12h June, June, 07 days Active RESULTS No Results PROCEDURES Procedure Date Ordered Result Body Site DEPO MEDROL 40 MG/ML July 01, 2016 DEXAMETHASONE 4MG/ML (PER 1 MG) July 01, 2016 THER/PROPH/DIAG INJ, SC/IM July 01, 2016 IMMUNIZATIONS Vaccine Route Administration Date Status DEXAMETHASONE 4MG/ML (PER 1 MG) IM Intramuscular July 01, 2016 Administered DEPO MEDROL 40 MG/ML IM Intramuscular July 01, 2016 Administered MEDICAL (GENERAL) HISTORY Type Description Date Medical [...]
--- OUTSIDE RECORDS SUMMARY | 2017-02-05 07:37 | XMS REPORT ---
Author Author FARZAD GONZÁLES Organization [facility] Address [address] [place] [address] Care Team Providers Care Flight Service Specialist Name Role Phone GONZÁLES, FARZAD Unavailable PROBLEMS Type Condition ICD9-CM Code BJC47-ZF Code Onset Dates Condition Status SNOMED Code Problem B12 deficiency anemia D51.9 Active 31329008 Problem Other chronic pain G89.29 Active 19358260 Problem Alcohol abuse F10.10 Active 60161414 Problem Insomnia, unspecified type G47.00 Active 547845646 Problem Chronic fatigue R53.82 Active 28882245 Problem Chronic obstructive pulmonary disease with acute exacerbation J44.1 Active 187343070 Problem Gastroesophageal reflux disease without esophagitis K21.9 Active 465740045 Problem 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
--- OUTSIDE RECORDS SUMMARY | 2017-02-05 07:37 | XMS REPORT ---
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 183717355 Problem Depression F32.9 Active 06761060 Problem Alcohol abuse F10.10 Active 57567388 Problem Insomnia G47.00 Active 674112380 Problem Anxiety F41.9 Active 66918544 Problem GERD (gastroesophageal reflux disease) K21.9 Active 964208794 Problem B12 deficiency anemia D51.9 Active 24398544 Problem History of chronic back pain Z87.39 Active 592731844 ALLERGIES Unknown Allergies SOCIAL HISTORY No smoking Hx information available PLAN OF CARE VITAL SIGNS MEDICATIONS Medication Instructions Dosage Frequency Start Date End Date Duration Status Oxycodone HCl 10 mg Orally 3 times a day 1 tablet as needed 8h 28 Jan, 2015 Active MS Contin 60 mg Orally every 12 hrs 1 tablet 12h 11 Feb, 2015 Active RESULTS No Results PROCEDURES No Known procedures IMMUNIZATIONS No Known Immunizations
--- OUTSIDE RECORDS SUMMARY | 2017-02-05 07:37 | XMS REPORT ---
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 Active 624145172 Problem Gastroesophageal reflux disease without esophagitis K21.9 Active 678535314 Problem Other chronic pain G89.29 Active 06661798 Problem Other male erectile dysfunction N52.8 Active 665336993 Problem Chronic obstructive pulmonary disease with acute exacerbation J44.1 Active 233443875 Problem History of chronic back pain Z87.39 Active 316744975 Problem Depression F32.9 Active 31704485 Problem GERD (gastroesophageal reflux disease) K21.9 Active 040221061 Problem Hallucinogen psychosis, 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
--- OUTSIDE RECORDS SUMMARY | 2017-02-05 07:37 | XMS REPORT ---
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 Active 303848313 Problem Gastroesophageal reflux disease without esophagitis K21.9 Active 908355037 Problem Other chronic pain G89.29 Active 23484096 Problem Other male erectile dysfunction N52.8 Active 167252210 Problem Chronic obstructive pulmonary disease with acute exacerbation J44.1 Active 947115177 Problem History of chronic back pain Z87.39 Active 557400259 Problem Depression F32.9 Active 56473666 Problem GERD (gastroesophageal reflux disease) K21.9 Active 982365448 Problem Hallucinogen psychosis, 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 013440663 Problem Anxiety F41.9 Active 89098982 ALLERGIES No Information SOCIAL HISTORY Never Assessed PLAN OF CARE VITAL SIGNS MEDICATIONS Medication Instructions Dosage Frequency Start Date End Date Duration Status Seroquel 25 MG Orally 3 times a day 1 tablet 8h Jan, 30 days Active Omeprazole 40 mg Orally Once a day 1 capsule 24h June, 30 days Active Seroquel 100 mg Orally Once a day at bedtime 1 tablet at bedtime June, 30 days Active Gabapentin 400 mg Orally Three times a day 1 capsule 8h Feb, 74 days Active Nabumetone 500 MG Orally Twice a day 1 tablet 12h 90 days Active Cymbalta 60 mg Orally Once a day 1 capsule 24h 30 days Active RESULTS No Results PROCEDURES [...]
--- OUTSIDE RECORDS SUMMARY | 2017-02-05 07:37 | XMS REPORT ---
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 Active 693635851 Problem Gastroesophageal reflux disease without esophagitis K21.9 Active 406226863 Problem Other chronic pain G89.29 Active 17705978 Problem Other male erectile dysfunction N52.8 Active 658647828 Problem Chronic obstructive pulmonary disease with acute exacerbation J44.1 Active 386185199 Problem History of chronic back pain Z87.39 Active 710180813 Problem Depression F32.9 Active 45175412 Problem GERD (gastroesophageal reflux disease) K21.9 Active 520432835 Problem Hallucinogen psychosis, 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 Unknown Non Drug Allergy Mar, Unknown SOCIAL HISTORY No smoking Hx information available PLAN OF CARE Activity Details Follow Up 3 Months Reason: VITAL SIGNS Height 72 in 2016-03-28 Weight 195.0 lbs 2016-03-28 Temperature 97.5 degrees Fahrenheit 2016-03-28 Heart Rate 80 bpm 2016-03-28 Respiratory Rate 20 2016-03-28 BMI 26.44 kg/m2 2016-03-28 Blood pressure systolic 104 mmHg 2016-03-28 Blood pressure diastolic 80 mmHg 2016-03-28 MEDICATIONS Medication Instructions Dosage Frequency Start Date End Date Duration Status Gabapentin 400 MG Orally Three times a day 1 capsule 8h Feb, 67 days Active Nabumetone 500 MG Orally Twice a day 1 tablet 12h 90 days Active B Complex Vitamins 1 Orally Once a day as directed 24h 05 May, 2015 Active Soma 350 MG Orally 3 times a day 1 tablet as needed 8h Dec, Active MS Contin 60 mg Orally every 12 hrs 1 tablet 12h Feb, 28 days Active Cymbalta 60 mg Orally Once a day 1 capsule 24h 30 days Active Seroquel 100 MG Orally Once a day at bedtime 1 tablet at bedtime June, Active Seroquel 25 MG Orally 3 times a day 1 tablet 8h Jan, 30 days Active Omeprazole 40 mg Orally Once a day 1 capsule 24h June, 90 days Active Oxycodone HCl 10 mg Orally 3 times a day 1 tablet as needed 8h Feb, 28 days Active Xanax 1 MG Orally 2 times a day 1 tablet 12h Nov, Active RESULTS Name Result Date Reference Range CBC 2016-03-28 WBC 5.4 3.4-10.8 RBC 5.23 4.14-5.80 Hemoglobin 14.7 12.6-17.7 Hematocrit 45.1 37.5-51.0 MCV 86 79-97 MCH 28.1 26.6-33.0 MCHC 32.6 31.5-35.7 RDW 15.6 12.3-15.4 Platelets 246 150-379 Neutrophils 54 Lymphs 38 Monocytes 5 Eos 2 Basos 1 Immature Cells Neutrophils (Absolute) 2.9 1.4-7.0 Lymphs (Absolute) 2.1 0.7-3.1 Monocytes(Absolute) 0.3 0.1-0.9 Eos (Absolute) 0.1 0.0-0.4 Baso (Absolute) 0.0 0.0-0.2 Immature Granulocytes 0 Immature Grans (Abs) 0.0 0.0-0.1 NRBC Hematology Comments: URINE DRUG SCREEN (IN HOUSE) 2016-03-28 Lot # [id number] Exp date 09/2017 Control + COCAINE Negative AMPH Negative MTD Negative THC Negative OPIATE Positive BENZO Positive PCP negative BAR negative OXY positive MAMP negative TCA Positive BUP negative MDMA Positive AMERITOX 2016-03-28 Xray : Spine, Lumbar 2-3 views (IN HOUSE) 2016-03-28 PROCEDURES Procedure Date Ordered Related Diagnosis Body Site ROUTINE VENIPUNCTURE 2016-03-28 N/A X-RAY EXAM OF LOWER SPINE Mar 28, 2016 DRUG TEST PRSMV DIR OPT OBS Mar 28, 2016 COMPLETE CBC W/AUTO DIFF WBC Mar 28, 2016 No Charge Mar 28, 2016 Office Visit, Est Pt., Level 3 Mar 28, 2016 VENIPUNCT, ROUTINE* Mar 28, 2016 IMMUNIZATIONS No Known Immunizations
--- OUTSIDE RECORDS SUMMARY | 2017-02-05 07:37 | XMS REPORT ---
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 Active 044888818 Problem Gastroesophageal reflux disease without esophagitis K21.9 Active 672437174 Problem Other chronic pain G89.29 Active 88791510 Problem Other male erectile dysfunction N52.8 Active 004993159 Problem Chronic obstructive pulmonary disease with acute exacerbation J44.1 Active 841308238 Problem History of chronic back pain Z87.39 Active 556304057 Problem Depression F32.9 Active 73488611 Problem GERD (gastroesophageal reflux disease) K21.9 Active 560359509 Problem Hallucinogen psychosis, 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
--- OUTSIDE RECORDS SUMMARY | 2017-02-05 07:37 | XMS REPORT ---
Author Author FARZAD GONZÁLES Organization 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 Active 591378382 Problem Gastroesophageal reflux disease without esophagitis K21.9 Active 513237547 Problem Other chronic pain G89.29 Active 17364567 Problem Other male erectile dysfunction N52.8 Active 402935865 Problem Chronic obstructive pulmonary disease with acute exacerbation J44.1 Active 258335709 Problem History of chronic back pain Z87.39 Active 656563547 Problem Depression F32.9 Active 03340810 Problem GERD (gastroesophageal reflux disease) K21.9 Active 004032738 Problem Hallucinogen psychosis, 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
--- OUTSIDE RECORDS SUMMARY | 2017-02-05 07:37 | XMS REPORT ---
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 Active 224281590 Problem Gastroesophageal reflux disease without esophagitis K21.9 Active 530423765 Problem Other chronic pain G89.29 Active 62101261 Problem Other male erectile dysfunction N52.8 Active 784501319 Problem Chronic obstructive pulmonary disease with acute exacerbation J44.1 Active 508054880 Problem History of chronic back pain Z87.39 Active 422583808 Problem Depression F32.9 Active 00945576 Problem GERD (gastroesophageal reflux disease) K21.9 Active 826429874 Problem Hallucinogen psychosis, 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
--- OUTSIDE RECORDS SUMMARY | 2017-02-05 07:38 | XMS REPORT ---
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 335657904 Problem Anxiety F41.9 Active 41452017 Problem GERD (gastroesophageal reflux disease) K21.9 Active 088883587 Problem Depression F32.9 Active 38560008 Problem Gastroesophageal reflux disease without esophagitis K21.9 Active 226828168 Problem Other chronic pain G89.29 Active 90317965 Problem B12 deficiency anemia D51.9 Active 50589841 Problem History of chronic back pain Z87.39 Active 928305756 Problem Alcohol abuse F10.10 Active 05198708 Problem Insomnia G47.00 Active 322820084 ALLERGIES Unknown Allergies SOCIAL HISTORY No smoking Hx information available PLAN OF CARE VITAL SIGNS MEDICATIONS Medication Instructions Dosage Frequency Start Date End Date Duration Status Oxycodone HCl 10 mg Orally 3 times a day 1 tablet as needed 8h Dec, 28 days Active MS Contin 60 mg Orally every 12 hrs 1 tablet 12h Dec, 28 days Active Xanax 1 MG Orally 3 times a day 1 tablet 8h Nov, 28 days Active RESULTS No Results PROCEDURES No Known procedures IMMUNIZATIONS No Known Immunizations
--- OUTSIDE RECORDS SUMMARY | 2017-02-05 07:38 | XMS REPORT ---
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
--- OUTSIDE RECORDS SUMMARY | 2017-02-05 07:38 | XMS REPORT ---
Author FARZAD Donovan [facility] eClinicalWorks Address Unknown Phone Unavailable Care Team Providers Care Senior Statistician Name Role Phone FARZAD GONZÁLES Unavailable Allergies [...] Date End Date Status Dosage Oxycodone HCl [facility] [address]-46 10 mg Orally 3 times a day Feb 20, 2015 1 tablet as needed MS Contin [facility] [address]-48 60 mg Orally every 12 hrs Mar 06, 2015 1 tablet Results No Known Results Summary Purpose eClinicalWorks Submission
--- OUTSIDE RECORDS SUMMARY | 2017-02-05 07:38 | XMS REPORT ---
Author FARZAD Donovan [facility] eClinicalWorks Address Unknown Phone Unavailable Care Team Providers Care Floor Layer Tile Name Role Phone FARZAD GONZÁLES Unavailable Allergies, Adverse Reactions, Alerts Substance Reaction Event Type N.K.D.A. 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 Problem Depression F32.9 Active Problem Anxiety F41.9 Active Problem GERD (gastroesophageal reflux disease) K21.9 Active Assessment B12 deficiency anemia D51.9 Active Assessment Insomnia G47.00 Active Assessment Depression F32.9 Active Assessment Hallucinogen psychosis, 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 Medications Medication Code System Code Instructions Start Date End Date Status Dosage Nabumetone [facility] [address]-12 500 MG Orally Twice a day 1 tablet Remeron [facility] [address]-33 30 MG Orally Once a day 1 tablet before bedtime in the evening Xanax [facility] [address]-14 1 MG Orally 3 times a day Dec 19, 2014 1 tablet Oxycodone HCl [facility] [address]-41 30 MG Orally every 6 hrs Feb 20, 2015 1 tablet as needed Soma [facility] [address]-17 350 MG Orally 2 times a day Jan 02, 2015 1 tablet as needed Seroquel [facility] [address]-54 50 MG Orally four times a day and 100 mg at bedtime 1 tablet Seroquel [facility] [address]-48 100 MG Orally Once a day Jan 30, 2015 1 tablet at bedtime Nexium [facility] [address]-98 40 MG Orally Once a day 1 capsule Cymbalta [facility] [address]-29 60 MG Orally Once a day 1 capsule Procedures Procedure Coding System Code Date B12, VITAMIN (UP TO 1000 MCG) CPT-4 J3420 Jan 30, 2015 THER/PROPH/DIAG INJ, SC/IM CPT-4 34145 Jan 30, 2015 Office Visit, Est Pt., Level 4 CPT-4 59409 Jan 30, 2015 Vital Signs Date/Time: Jan 30, 2015 Temperature 96.9 F Weight 168.3 lbs Height 72 in BMI 22.82 Index Blood Pressure Diastolic 60 mmHg Blood Pressure Systolic 110 mmHg Cardiac Monitoring Heart Rate 82 bpm Results No Known Results Summary Purpose eClinicalWorks Submission
--- OUTSIDE RECORDS SUMMARY | 2017-02-05 07:38 | XMS REPORT ---
Author FARZAD Donovan Organization [employer] Address Unknown Phone Unavailable Care Team Providers Care Telephone Maintenance Mechanic Name Role Phone FARZAD GONZÁLES CP Unavailable [...] Date End Date Status Dosage Oxycodone HCl [facility] [address]-00 30 MG Orally every 6 hrs Feb 20, 2015 1 tablet as needed Results No Known Results Summary Purpose eClinicalWorks Submission
--- OUTSIDE RECORDS SUMMARY | 2017-02-05 07:38 | XMS REPORT ---
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 Active 001226538 Problem Gastroesophageal reflux disease without esophagitis K21.9 Active 298627547 Problem Other chronic pain G89.29 Active 48484853 Problem Other male erectile dysfunction N52.8 Active 685801220 Problem Chronic obstructive pulmonary disease with acute exacerbation J44.1 Active 231495202 Problem History of chronic back pain Z87.39 Active 718184760 Problem Depression F32.9 Active 37283587 Problem GERD (gastroesophageal reflux disease) K21.9 Active 780420031 Problem Hallucinogen psychosis, 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
--- OUTSIDE RECORDS SUMMARY | 2017-02-05 07:38 | XMS REPORT ---
Author FARZAD Donovan Organization [employer] Address Unknown Phone Unavailable Care Team Providers Care Physiological Chemist Name Role Phone FARZAD GONZÁLES Unavailable Allergies [...] Start Date End Date Status Dosage Xanax [facility] [address]-73 1 MG Orally 3 times a day Dec 19, 2014 1 tablet Results No Known Results Summary Purpose eClinicalWorks Submission
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
--- OUTSIDE RECORDS SUMMARY | 2017-02-05 07:38 | XMS REPORT ---
Author FARZAD Donovan [facility] eClinicalWorks Address Unknown Phone Unavailable Care Team Providers Care Financial Foundations Associate Name Role Phone FARZAD GONZÁLES Unavailable Allergies, [...] Active Problem B12 deficiency anemia D51.9 Active Assessment Other chronic pain G89.29 Active Assessment Gastroesophageal reflux disease without esophagitis K21.9 Active Assessment Pain in left shoulder M25.512 Active Assessment Depression F32.9 Active Assessment Anxiety F41.9 Active Assessment B12 deficiency anemia D51.9 Active Assessment Alcohol abuse F10.10 Active Assessment Hallucinogen psychosis, 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 Assessment History of chronic back pain Z87.39 Active Medications Medication Code System Code Instructions Start Date End Date Status Dosage Omeprazole [facility] [address]-10 40 mg Orally Once a day June 27, 2015 1 capsule Duloxetine HCl [facility] [address]-96 60 MG Orally Once a day Jan 16, 2016 1 capsule Soma [facility] [address]-43 350 MG Orally 4 times a day Jan 02, 2015 1 tablet as needed Oxycodone HCl [facility] [address]-14 10 mg Orally 3 times a day Jan 10, 2016 1 tablet as needed Gabapentin [facility] [address]-33 400 MG Orally Three times a day Mar 06, 2015 1 capsule Clobetasol Propionate [facility] [address]-56 0.05 % Externally Twice a day Sep 26, 2015 1 application to affected area Seroquel [facility] [address]-37 100 MG Orally Once a day at bedtime June 27, 2015 1 tablet at bedtime Xanax [facility] [address]-30 1 MG Orally 3 times a day Dec 19, 2014 1 tablet Cymbalta [facility] [address]-25 60 mg Orally Once a day 1 capsule MS Contin [facility] [address]-68 60 mg Orally every 12 hrs Jan 10, 2016 1 tablet Nabumetone [facility] [address]-32 500 MG Orally Twice a day Apr 15, 2016 1 tablet B Complex Vitamins [facility] 0 1 Orally Once a day May 30, 2015 as directed Seroquel [facility] [address]-33 25 MG Orally 3 times a day Feb 20, 2015 1 tablet Procedures Procedure Coding System Code Date X-RAY EXAM OF SHOULDER CPT-4 01141 Jan 16, 2016 Office Visit, Est Pt., Level 4 CPT-4 90701 Jan 16, 2016 DRUG SCREEN NON TLC DEVICES CPT-4 07392 Jan 16, 2016 LIPID PANEL CPT-4 20191 Jan 16, 2016 VENIPUNCT, ROUTINE* CPT-4 74256 Jan 16, 2016 COMPREHEN METABOLIC PANEL CPT-4 06317 Jan 16, 2016 Vital Signs Date/Time: Jan 16, 2016 Cardiac Monitoring Heart Rate 78 bpm Weight 183.7 lbs Height 72 in BMI 24.91 Index Blood Pressure Diastolic 90 mmHg Blood Pressure Systolic 130 mmHg Results Name Result Date Reference Range Unit Abnormality Flag CBC ----Lymphs 38 50791377 % ----Neutrophils 54 36839702 % ----Baso (Absolute) 0.1 [id number] 0.0-0.2 x10E3/uL ----Hemoglobin 14.3 60192683 12.6-17.7 g/dL ----Eos (Absolute) 0.2 89165774 0.0-0.4 x10E3/uL ----Hematocrit 43.7 68321074 37.5-51.0 % ----Monocytes(Absolute) 0.3 64822528 0.1-0.9 x10E3/uL ----MCV 87 66822355 79-97 fL ----Lymphs (Absolute) 2.9 [id number] 0.7-3.1 x10E3/uL ----MCH 28.4 18074022 26.6-33.0 pg ----Neutrophils (Absolute) 4.1 20160116 1.4-7.0 x10E3/uL ----MCHC 32.7 20160116 31.5-35.7 g/dL ----Hematology Comments: Note: 20160116 ----Basos 1 20160116 % ----RDW 15.3 [id number] 12.3-15.4 % ----WBC 7.5 09465044 3.4-10.8 x10E3/uL ----Platelets 288 20160116 150-379 x10E3/uL ----Eos 3 20160116 % ----RBC 5.04 54564480 4.14-5.80 x10E6/uL ----Monocytes 4 64101938 % LIPID PANEL ----LDL Cholesterol Calc 161 70357954 0-99 mg/dL H ----VLDL Cholesterol Rad 26 20160116 5-40 mg/dL ----Cholesterol, Total 232 20160116 100-199 mg/dL H ----HDL Cholesterol 45 59901646 >39 mg/dL ----Triglycerides 130 40846195 0-149 mg/dL URINE DRUG SCREEN (IN HOUSE) ----BUP Negative 20160116 ----TCA Negative 20160116 ----MDMA Negative 20160116 ----BENZO Positive 20160116 ----OPIATE Positive 20160116 ----THC Negative 20160116 ----MTD Negative 20160116 ----AMPH Negative 20160116 ----BAR Negative 20160116 ----PCP Negative 20160116 ----MAMP Negative 20160116 ----OXY Positive 20160116 ----Lot # [id number] 20160116 ----Exp date 20160116 ----Control + 20160116 ----COCAINE Negative 20160116 ROUTINE VENIPUNCTURE CMP ----Potassium, Serum 4.9 20160116 3.5-5.2 mmol/L ----Sodium, Serum 143 20160116 136-144 mmol/L ----BUN/Creatinine Ratio 7 20160116 9-20 L ----eGFR If Africn Am 109 20160116 >59 mL/min/1.73 ----eGFR If NonAfricn Am 94 52930971 >59 mL/min/1.73 ----Creatinine, Serum 0.87 20160116 0.76-1.27 mg/dL ----BUN 6 20160116 6-24 mg/dL ----Glucose, Serum 65 20160116 65-99 mg/dL ----AST (SGOT) 21 20160116 0-40 IU/L ----Globulin, Total 3.1 20160116 1.5-4.5 g/dL ----ALT (SGPT) 14 20160116 0-44 IU/L ----A/G Ratio 1.5 20160116 1.1-2.5 ----Bilirubin, Total <0.2 20160116 0.0-1.2 mg/dL ----Alkaline Phosphatase, S 92 20160116 39-117 IU/L ----Carbon Dioxide, Total 28 20160116 18-29 mmol/L ----Calcium, Serum 9.8 20160116 8.7-10.2 mg/dL ----Protein, Total, Serum 7.8 20160116 6.0-8.5 g/dL ----Albumin, Serum 4.7 20160116 3.5-5.5 g/dL ----Chloride, Serum 98 20160116 97-106 mmol/L Xray : Shoulder, Left 2 view (IN HOUSE) Summary Purpose eClinicalWorks Submission
[2017-02-05] MEDS ORDERED: LACTATED RINGERS 1,000 ML IV STA (07:44)
[2017-02-05 08:04] VITALS: BP 119/73
[2017-02-05] MEDS ORDERED: LACTATED RINGERS 1,000 ML IV PRN (08:21)
[2017-02-05] MEDS ORDERED: RT-ALBUTEROL SULF 2.5 MG/3 ML PRE-MIX VIAL INH ONE (08:30)
[2017-02-05] MEDS ORDERED: SUCCINYLCHOLINE INJ 100 MG/5 ML SYR ONE (09:41)
[2017-02-05] MEDS ORDERED: MIDAZOLAM 2 MG/2 ML (VERSED) VIAL ONE (09:41)
[2017-02-05] MEDS ORDERED: proPOfol 200 MG/20 ML (DIPRIVAN) VIAL IV ONE (09:41)
[2017-02-05] MEDS ORDERED: fentaNYL INJECTION 100 MCG/2 ML AMP ONE (10:18)
[2017-02-05] MEDS ORDERED: LACTATED RINGERS 1,000 ML IV ONE (10:22)
[2017-02-05] MEDS ORDERED: ROCURONIUM 50 MG/5 ML (ZEMURON) VIAL IV ONE (10:25)
[2017-02-05] MEDS ORDERED: LACTATED RINGERS 1,000 ML IV SCH (10:45)
[2017-02-05] MEDS ORDERED: ONDANSETRON 4 MG/2 ML (SDV) Z0FRAN ONE (10:56)
[2017-02-05] MEDS ORDERED: NEOSTIGMINE (BLOXIVERZ ) 1 MG/1ML 10 ML VIAL ONE (10:56)
[2017-02-05] MEDS ORDERED: GLYCOPYRROLATE 0.2 MG/ML (ROBINUL) 2 ML VIAL ONE (10:56)
[2017-02-05 12:00] VITALS: BP 127/41
[2017-02-05 12:30] VITALS: BP 120/74
--- NOTE | 2017-02-05 12:34 | Diagnostic Imaging Report ---
EXAMINATION: Portable upright radiograph of the chest. INDICATION: Post bronchoscopy evaluation. FINDINGS: There is a prominent interstitial thickening increased from the comparison exam of 09/19/14. When correlated with PET/CT of 01/28/17 nodule in the right middle lobe is not well demonstrated. The heart size is enlarged. There is probable vascular congestion explaining at least in part the interstitial thickening. No effusion or pneumothorax. The mediastinum and arturo appear unremarkable. IMPRESSION: Cardiomegaly with pulmonary vascular congestion. Dictated by: Dictated on workstation # [id number]
[2017-02-05 12:35] VITALS: BP 120/74
== END 2017-02-05 12:35 | disposition home or self-care (01) ==
LOC: SDC 07:30
PROVIDERS: ATTEND Internal Medicine Critical Care Medicine
DX: J44.9 Chronic obstructive pulmonary disease, unspecified (principal); F17.210 Nicotine dependence, cigarettes, uncomplicated; R09.02 Hypoxemia; R91.8 Other nonspecific abnormal finding of lung field; Z99.81 Dependence on supplemental oxygen; Z79.899 Other long term (current) drug therapy; G40.909 Epilepsy, unspecified, not intractable, without status epilepticus; K21.9 Gastro-esophageal reflux disease without esophagitis
CPT/HCPCS: 71010; 87070; 87101; 87116; 87205; 94640

== ENCOUNTER → 2017-02-18 | Outpatient (CLI) | payer MEDICARE ==
[~2017-02-18] MED LIST changes: -LIDOCAINE 4% INJ (XYLOCAINE) 5ML AMP INJ ONE; -LIDOCAINE PF 1% 2 ML AMP INJ ONE
--- NOTE | 2017-02-18 16:36 | Diagnostic Imaging Report ---
PROCEDURE: MRI lumbar spine. TECHNIQUE: Multiplanar, multisequence MRI of the lumbar spine was performed without contrast. INDICATION: Back pain. FINDINGS: There is straightening of the spine curvature in the upper to mid lumbar spine levels. The alignment of the posterior spinal line is satisfactory. The vertebral body heights are preserved. There is no disc desiccation with preserved disc heights. There is mild marrow signal reactive changes of the anterior aspect of endplates at L2/L3, L3/L4 and L4/L5 levels. No suspicious marrow focal lesion is seen. The cauda equina and conus medullaris appear grossly unremarkable. T12/L1: There is no disc herniation, and no spinal canal or foraminal stenosis. L1/L2: There is minimal disc herniation. There is no spinal canal or foraminal stenosis. L2/L3: There is a diffuse disc bulge. There is minimal facet hypertrophy. No central canal, lateral recess or foraminal stenosis. L3/L4: There is a diffuse disc bulge and mild facet hypertrophy. No central canal, lateral recess or foraminal stenosis. L4/L5: There is a diffuse disc bulge and mild to moderate facet hypertrophy with facet joint effusion bilaterally. No central canal stenosis. There is mild lateral recess stenosis bilaterally. Mild to moderate stenosis is seen in the foramina, more on the left side. L5/S1: There is a minimal disc bulge, and mild facet hypertrophy with no significant spinal canal central or lateral recess stenosis. The foramina demonstrate mild narrowing bilaterally. IMPRESSION: Mild degenerative disc and facet changes in the lower lumbar spine. Mild to moderate neural foraminal stenosis is seen bilaterally at L4/L5 level. Dictated by: Dictated on workstation # [id number]
== END ==
LOC: RAD 15:24
PROVIDERS: ATTEND Family Medicine
DX: M51.16 Intervertebral disc disorders with radiculopathy, lumbar region (principal); M48.061 Spinal stenosis, lumbar region without neurogenic claudication
CPT/HCPCS: 72148

== ENCOUNTER → 2017-02-21 | Outpatient (CLI) | payer MEDICAID, MEDICARE ==
[~2017-02-21] MED LIST changes: +RT-ALBUTEROL SULF 2.5 MG/3 ML PRE-MIX VIAL INH ONE
== END ==
LOC: RT 12:49
PROVIDERS: ATTEND Nurse Practitioner Family
DX: J44.9 Chronic obstructive pulmonary disease, unspecified (principal)
CPT/HCPCS: 94060; 94726; 94729

== ENCOUNTER 2017-04-01 05:36 | Outpatient (CLI) | payer MEDICARE ==
[~2017-04-01] VITALS: Ht 182.9 cm; Wt 79.4 kg
[~2017-04-01 05:36] MED LIST changes: -RT-ALBUTEROL SULF 2.5 MG/3 ML PRE-MIX VIAL INH ONE
[2017-04-02] MEDS ORDERED: MORP60TA52 PO (11:12)
== END 2017-04-01 09:23 ==
LOC: PREOP 05:36
PROVIDERS: ATTEND Surgery
DX: Z01.818 Encounter for other preprocedural examination (principal); C76.0 Malignant neoplasm of head, face and neck

== ENCOUNTER 2017-04-02 08:23 | Day surgery (SDC) | payer MEDICARE ==
[~2017-04-02] VITALS: Ht 182.9 cm; Wt 79.4 kg
[2017-04-02 08:30] VITALS: BP 112/85
[2017-04-02] MEDS ORDERED: ceFAZolin 2 GM IV Premixed 50 ML IV ONE (09:00)
[2017-04-02] MEDS ORDERED: KETAMINE HCL 100 MG/ML 5 ML VIAL ONE (09:10)
[2017-04-02] MEDS ORDERED: PROPOFOL INJECTION 50 ML IV ONE (09:10)
[2017-04-02] MEDS ORDERED: MIDAZOLAM 2 MG/2 ML (VERSED) VIAL ONE ×2 (09:11→10:13)
[2017-04-02] MEDS ORDERED: 0.9% SODIUM CHLORIDE PF INJ 20 ML VIAL ONE (09:18)
[2017-04-02] MEDS ORDERED: LIDOCAINE/EPI 1%-1:200,000 (XYLOCAINE) 10 ML VIAL ONE ×2 (09:19)
[2017-04-02] MEDS ORDERED: HEParin (CENTRAL IV FLUSH) 500 UNIT/5 ML SYR ONE (09:19)
[2017-04-02] MEDS: LACTATED RINGERS 1,000 ML IV PRN ×2 (09:21→11:32)
--- NOTE | 2017-04-02 10:06 | Progress Note-Pre Operative ---
Pre-Operative Progress Note H&P Reviewed The H&P was reviewed, patient examined and no changes noted. Time Seen by Provider: 09:51 Date H&P Reviewed: Apr 02, 2017 Time H&P Reviewed: 09:57 Pre-Operative Diagnosis: Squamous Cell Ca of neck, malnutrition, Venous insufficiency JUDE MCCURDY DO Apr 02, 2017 10:06
[2017-04-02] MEDS ORDERED: proPOfol 200 MG/20 ML (DIPRIVAN) VIAL IV ONE (11:04)
--- NOTE | 2017-04-02 11:10 | Progress Note-Post Operative ---
Post-Operative Progess Note Surgeon (s)/Maintenance Operator (s) Surgeon JUDE MCCURDY DO Maintenance Operator: Kailash Pre-Operative Diagnosis Squamous Cell Ca of neck, malnutrition, Venous insufficiency Post-Operative Diagnosis Same Procedure & Operative Findings Date of Procedure 04/02/17 Procedure Performed/Findings 1. EGD with Bx 2. Janes-cath placement Anesthesia Type IV sedation by anesthesia Estimated Blood Loss Estimated blood loss (mL): scant Specimens/Packing Specimens Removed Esophageal bx JUDE MCCURDY DO Apr 02, 2017 11:10
[2017-04-02] MEDS ORDERED: MORP60TA52 PO (11:12)
--- NOTE | 2017-04-02 11:14 | Discharge Inst-Surgical ---
Discharge Inst-Surgical Depart Medication/Instructions New, Converted or Re-Newed RX: RX Given to Pt/Family Patient Instructions Follow up Appt: Make appointment for 1 week. Instructions: No strenuous activity. May shower in 24 hours, no tub bath or soaking. Use incentive spirometer at home as directed. No Smoking Skin/Wound Care: May remove bandages. You need to leave the white strips over incision on they will fall off on their own. Symptoms to Report: Appetite Changes, Extremity Discoloration, Numbness/Tingling, Swelling Increased , Bleeding Excessive, Eyesight Changes, Pain Increased, Urine Color Change, Constipation(Persistent), Fever over 101 degree F, Pain/Pressure in chest, Urinating Difficulty, Cough Up/Vomit Blood, Heart Beat Irreg/Pounding, Pain/ Pressure in jaw, Cramps in feet or legs, Lightheadedness, Pain/Pressure in shoulder, Diarrhea(Persistent), Memory Changes Suddenly, Questions/Concerns, Weight gain consecutive days, Dizziness/Fainting, Nausea/Vomiting, Shortness of Breath, Weight gain over 2 pounds If questions or concerns contact your physician Or seek help at emergency department. Activity Activity as Tolerated: Yes Driving Instructions: No Driving/Refer to Dr. Carty Discharge Diet: No Restrictions Diet After 24 Hours: Clear Liquid if Nauseous If Any Problems/Questions/Issu: Contact Your Physician, Go to Emergency Room Skin/Wound Care Infection Signs and Symptoms: Increased Redness, Foul Odor of Wound, Increased Drainage, Skin Itchy or Has a Rash, Increased Swelling, Temperature Above 101 F Bathing Instructions: Shower Stitches/Mirtha/Dermabond Dis: JUDE Manzanares DO Apr 02, 2017 11:14
[2017-04-02] MEDS: ONDANSETRON 4 MG/2 ML (SDV) Z0FRAN IVP PRN ×2 (11:32→11:47)
[2017-04-02] MEDS: morphine INJ 10 MG/ML 1ML (SYR OR VIAL) IVP PRN (11:37)
[2017-04-02 12:10] VITALS: BP 155/92
[2017-04-02] MEDS ORDERED: morphine ER 30 MG (MS CONTIN) TAB PO NR (12:30)
--- NOTE | 2017-04-02 12:37 | Diagnostic Imaging Report ---
EXAMINATION: Fluoroscopy INDICATION: PowerPort insertion Fluoroscopic assistance was provided for Dr. Claude Vargas, during his PowerPort insertion procedure. 5 seconds of fluoroscopy time was utilized. A single spot film of the right thorax was obtained. There is a central venous catheter in place on the right with the tip of the catheter overlying the midportion of the superior vena cava. IMPRESSION: Fluoroscopic assistance was provided for Dr. Vargas. Dictated by: Dictated on workstation # [id number]
[2017-04-02 13:00] VITALS: BP 150/88
[2017-04-02 13:45] VITALS: BP 138/89
[2017-04-02 13:50] VITALS: BP 138/89
--- NOTE | 2017-04-02 15:26 | OPERATIVE REPORT ---
DATE OF SERVICE: 04/02/2017 PREOPERATIVE DIAGNOSES: 1. Squamous cell carcinoma of the neck. 2. Venous insufficiency. 3. Malnutrition. POSTOPERATIVE DIAGNOSES: 1. Squamous cell carcinoma of the neck. 2. Venous insufficiency. 3. Malnutrition. 4. Changes in the esophagus. PROCEDURE: 1. EGD with biopsy. 2. Port-A-Cath placement. SURGEON: Claude Vargas DO CIVIL DIVISION COMMANDER DEPUTY SHERIFF: Giles Linder DO ANESTHESIA: IV sedation by the anesthesiologist. BLOOD LOSS: Scant. SPECIMEN: Biopsy from the esophagus. 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 He needed intermedius insufficiency. He needed a port placement for long-term chemotherapy and secondary to chemotherapy and radiation, he was going to receive able to eat and needed a PEG tube placed. FINDINGS: The patient had a Port-A-Cath placed in right anterior chest wall, right subclavian vein and a PEG tube placed with EGD and biopsy. PROCEDURE NOTE: After informed consent was obtained, the patient was brought to the operating room and placed on the operating table in supine position. He was sterilely prepped and draped in normal fashion. Elected to do a Port-A-Cath first, infiltrated the right anterior chest wall local as well as infiltrated towards the clavicle. Then using an 18 gauge fine needle on the second attempt, able to cannulate the subclavian vein, good flush of blood, removed the syringe, placed a guidewire down the needle using the Seldinger technique. It went in easily, got a little bit ectopy, removed the needle of the guidewire and placed the hemostat and then checked with fluoroscopy, then guidewire was going down the right spot. Then, using #11 blade made a stab incision at the guidewire and then an incision in right anterior chest wall to make a pocket for the port. Using Bovie electrocautery, cauterized any bleeding and then increased incision down towards the chest wall on to the pectoralis major fascia and then created with Bovie electrocautery as well as blunt dissection created a pocket, then used a tunneler and tunneled from the stab incision about the upper incision into the pocket created and then over the guidewire using Seldinger technique, placed the dilator, dilator went in easily. Checked with fluoroscopy, was in good position. Removed the inner portion of the dilator as well as the guidewire and then placed the catheter down the dilator using Seldinger technique. Checked with fluoroscopy, it was in good position, then removed the outer portion of the dilator, removed very easily and then made sure the catheter was in good position, was in good position, cut off the distal portion of the catheter. I attached the catheter to the port and then attached the port with the locking mechanism. Placed the port into the pocket previously created, then sutured this in place with a 3-0 Prolene down to the pectoralis major muscle. Then accessed the port with the Ha needle through the pocket so not through the skin, got a good flush of blood and then flushed with saline, easily flushed. Then left the needle in place and put heparin syringe on there, aspirated, got a good flush of blood and then flushed with 2 mL of heparin. I then checked with fluoroscopy to make sure there were no kinks and there was not and then closed the incision closing the subcutaneous tissue with 3-0 Vicryl, 2 interrupted sutures and closed the skin with 4-0 undyed Monocryl, 3 interrupted stitches and closed the small stab incision just above this with a single 4-0 undyed Monocryl subcuticular stitch. Area was cleaned and dried, Dermabond placed and then began the PEG tube placement. EGD was started, placed the scope down the mouth into the esophagus and down into the stomach, insufflated the stomach and then illuminated, so Dr. Linder could see. He then sterilely prepped and draped the abdomen, infiltrated the skin with local. He pushed, so I could see where he was pushing into the stomach. He then able to get a needle into the stomach. It went in very easily and then he performed his portion. I was able to grasp the guidewire and pulled this out. He then handed me the PEG tube. PEG tube was then pulled in and I followed the PEG tube down the esophagus into the stomach, took pictures. He finished his portion of the procedure, cutting off the distal portion of the PEG tube and then attaching the mechanism to hold it in place as well as the distal portion of the catheter to be able to inject fluid into the stomach, took pictures, tightened down and then suctioned out the stomach out the stomach up to esophagus. 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 I elected to do a biopsy about midway up to esophagus of this area. Then took another picture a little bit passes. There was good esophagus and then pulled the scope out. The patient tolerated the procedure and he was transferred to recovery room in stable condition. Sponge, instrument and needle counts correct at the end of the case. Job ID: [id number] DocumentID: [id number] Dictated Date: 04/02/2017 11:25:33 Outreach Manager Date: 04/02/2017 14:41:14 Dictated By: CLAUDE VARGAS DO
--- NOTE | 2017-04-02 16:45 | OPERATIVE REPORT ---
DATE OF SERVICE: 04/02/2017 PREOPERATIVE DIAGNOSIS: Squamous cell carcinoma of the skin. POSTOPERATIVE DIAGNOSIS: Squamous cell carcinoma of the skin. PROCEDURE: Percutaneous gastrostomy tube placement. SURGEON: Claude Vargas DO performing EGD and Nicolas Ramirez DO performing gastrostomy tube placement. INDICATIONS: The patient is a 61-year-old male who is going to undergo chemoradiation for squamous cell carcinoma of the skin around the neck. The patient was recommended to have a gastrostomy tube placed. Dr. Vargas was performing the port placement and EGD. Consent has been signed and on the chart for all of his procedures. Dr. Vargas inserted the scope into the stomach where it was insufflated with air. The abdomen was prepped and draped. The light was able to be visualized from the gastroscope through the skin and the stomach was ballottable demonstrating a the location for insertion. 1% lidocaine was used to anesthetize the skin. A #11 blade scalpel was used to make a small stab incision. An Angiocath needle was then inserted through the small incision and guidewire was inserted through the catheter and the catheter was then removed. Dr. Vargas used the snare to grasp the guidewire, which was then brought out through the mouth. The gastrostomy tube was attached to the wire and then I pulled the wire which withdrew the gastrostomy tube into the stomach. Good placement was present. The catheter was then secured in the usual fashion. The catheter was cut to length and the port was attached to the catheter. The area was then washed and dried and sterile bandage was applied. The patient tolerated procedure well. Please see Dr. Vargas's dictation for other parts of the procedures. Job ID: [id number] DocumentID: [id number] Dictated Date: 04/02/2017 12:12:22 Toddler Nanny Date: 04/02/2017 16:44:59 Dictated By: NICOLAS RAMIREZ DO
== END 2017-04-02 13:50 | disposition home or self-care (01) ==
LOC: SDC 08:23
PROVIDERS: ATTEND Surgery
DX: C44.42 Squamous cell carcinoma of skin of scalp and neck (principal); I87.2 Venous insufficiency (chronic) (peripheral); E46 Unspecified protein-calorie malnutrition; Z11.2 Encounter for screening for other bacterial diseases; F17.210 Nicotine dependence, cigarettes, uncomplicated; J44.9 Chronic obstructive pulmonary disease, unspecified; G40.909 Epilepsy, unspecified, not intractable, without status epilepticus; F32.9 Major depressive disorder, single episode, unspecified; F41.9 Anxiety disorder, unspecified; G62.9 Polyneuropathy, unspecified; K21.9 Gastro-esophageal reflux disease without esophagitis; Z79.899 Other long term (current) drug therapy
CPT/HCPCS: 87081

== ENCOUNTER → 2017-04-29 | Outpatient (RCR) | payer MEDICAID, MEDICARE ==
[2017-02-14 13:38] LABS: BASOPHILS % (AUTO) 0 % (0-10); EOSINOPHILS # (AUTO) 0.1 10^3/uL (0.0-0.3); EOSINOPHILS % (AUTO) 2 % (0-10); HEMATOCRIT 42 % (40-54); HEMOGLOBIN 13.2 G/DL (13.3-17.7); LYMPHOCYTES # (AUTO) 2.3 X 10^3 (1.0-4.0); LYMPHOCYTES % (AUTO) 30 % (12-44); MEAN CORPUSCULAR HEMOGLOBIN 26 PG (25-34); MEAN CORPUSCULAR HGB CONC 32 G/DL (32-36); MEAN CORPUSCULAR VOLUME 81 FL (80-99); MONOCYTES # (AUTO) 0.4 X 10^3 (0.0-1.0); MONOCYTES % (AUTO) 6 % (0-12); NEUTROPHILS # (AUTO) 4.6 X 10^3 (1.8-7.8); NEUTROPHILS % (AUTO) 62 % (42-75); PLATELET COUNT 252 10^3/uL (130-400); RED BLOOD COUNT 5.17 10^6/uL (4.35-5.85); RED CELL DISTRIBUTION WIDTH 17.3 % (10.0-14.5); WHITE BLOOD COUNT 7.5 10^3/uL (4.3-11.0)
[2017-02-14 14:06] LABS: ALANINE AMINOTRANSFERASE 17 U/L (0-55); ALBUMIN 4.1 GM/DL (3.2-4.5); ALKALINE PHOSPHATASE 80 U/L (40-136); BILIRUBIN,TOTAL 0.6 MG/DL (0.1-1.0); BUN/CREATININE RATIO 6; CALCIUM 9.7 MG/DL (8.5-10.1); CARBON DIOXIDE 30 MMOL/L (21-32); CHLORIDE 104 MMOL/L (98-107); CREATININE SERUM 0.79 MG/DL (0.60-1.30); GFR ESTIMATED > 60; GLUCOSE 100 MG/DL (70-105); POTASSIUM 4.3 MMOL/L (3.6-5.0); SODIUM 144 MMOL/L (135-145); TOTAL PROTEIN 7.8 GM/DL (6.4-8.2)
[2017-03-07 15:31] LABS: BASOPHILS % (AUTO) 1 % (0-10); EOSINOPHILS # (AUTO) 0.1 10^3/uL (0.0-0.3); EOSINOPHILS % (AUTO) 3 % (0-10); HEMATOCRIT 39 % (40-54); HEMOGLOBIN 12.8 G/DL (13.3-17.7); LYMPHOCYTES # (AUTO) 2.2 X 10^3 (1.0-4.0); LYMPHOCYTES % (AUTO) 43 % (12-44); MEAN CORPUSCULAR HEMOGLOBIN 26 PG (25-34); MEAN CORPUSCULAR HGB CONC 33 G/DL (32-36); MEAN CORPUSCULAR VOLUME 81 FL (80-99); MEAN PLATELET VOLUME 12.1 FL (7.4-10.4); MONOCYTES # (AUTO) 0.3 X 10^3 (0.0-1.0); MONOCYTES % (AUTO) 7 % (0-12); NEUTROPHILS # (AUTO) 2.5 X 10^3 (1.8-7.8); NEUTROPHILS % (AUTO) 48 % (42-75); PLATELET COUNT 238 10^3/uL (130-400); RED BLOOD COUNT 4.88 10^6/uL (4.35-5.85); WHITE BLOOD COUNT 5.3 10^3/uL (4.3-11.0)
[2017-03-07 15:48] LABS: ALANINE AMINOTRANSFERASE 20 U/L (0-55); ALBUMIN 3.8 GM/DL (3.2-4.5); ALKALINE PHOSPHATASE 84 U/L (40-136); BILIRUBIN,TOTAL 0.3 MG/DL (0.1-1.0); BUN/CREATININE RATIO 5; CARBON DIOXIDE 26 MMOL/L (21-32); CHLORIDE 107 MMOL/L (98-107); CREATININE SERUM 0.76 MG/DL (0.60-1.30); GFR ESTIMATED > 60; GLUCOSE 124 MG/DL (70-105); SODIUM 144 MMOL/L (135-145)
[2017-04-07 13:54] LABS: BASOPHILS % (AUTO) 0 % (0-10); EOSINOPHILS # (AUTO) 0.1 10^3/uL (0.0-0.3); EOSINOPHILS % (AUTO) 2 % (0-10); HEMATOCRIT 36 % (40-54); HEMOGLOBIN 12.1 G/DL (13.3-17.7); LYMPHOCYTES # (AUTO) 1.7 X 10^3 (1.0-4.0); LYMPHOCYTES % (AUTO) 33 % (12-44); MEAN CORPUSCULAR HEMOGLOBIN 27 PG (25-34); MEAN CORPUSCULAR HGB CONC 33 G/DL (32-36); MEAN CORPUSCULAR VOLUME 81 FL (80-99); MEAN PLATELET VOLUME 11.7 FL (7.4-10.4); MONOCYTES # (AUTO) 0.4 X 10^3 (0.0-1.0); MONOCYTES % (AUTO) 8 % (0-12); NEUTROPHILS # (AUTO) 2.9 X 10^3 (1.8-7.8); NEUTROPHILS % (AUTO) 57 % (42-75); PLATELET COUNT 254 10^3/uL (130-400); RED BLOOD COUNT 4.49 10^6/uL (4.35-5.85); RED CELL DISTRIBUTION WIDTH 16.5 % (10.0-14.5); WHITE BLOOD COUNT 5.2 10^3/uL (4.3-11.0)
[2017-04-07 14:19] LABS: ALANINE AMINOTRANSFERASE 12 U/L (0-55); ALBUMIN 3.6 GM/DL (3.2-4.5); ALKALINE PHOSPHATASE 80 U/L (40-136); BILIRUBIN,TOTAL 0.3 MG/DL (0.1-1.0); BUN/CREATININE RATIO 5; CARBON DIOXIDE 29 MMOL/L (21-32); CHLORIDE 104 MMOL/L (98-107); CREATININE SERUM 0.73 MG/DL (0.60-1.30); GFR ESTIMATED > 60; GLUCOSE 100 MG/DL (70-105); MAGNESIUM 1.6 MG/DL (1.8-2.4); POTASSIUM 3.7 MMOL/L (3.6-5.0); SODIUM 140 MMOL/L (135-145); TOTAL PROTEIN 6.4 GM/DL (6.4-8.2)
[2017-04-14 13:46] LABS: BASOPHILS % (AUTO) 0 % (0-10); EOSINOPHILS # (AUTO) 0.1 10^3/uL (0.0-0.3); EOSINOPHILS % (AUTO) 1 % (0-10); HEMATOCRIT 36 % (40-54); LYMPHOCYTES # (AUTO) 1.4 X 10^3 (1.0-4.0); LYMPHOCYTES % (AUTO) 25 % (12-44); MEAN CORPUSCULAR HEMOGLOBIN 27 PG (25-34); MEAN CORPUSCULAR HGB CONC 34 G/DL (32-36); MEAN CORPUSCULAR VOLUME 81 FL (80-99); MEAN PLATELET VOLUME 10.7 FL (7.4-10.4); MONOCYTES # (AUTO) 0.3 X 10^3 (0.0-1.0); MONOCYTES % (AUTO) 6 % (0-12); NEUTROPHILS # (AUTO) 3.9 X 10^3 (1.8-7.8); NEUTROPHILS % (AUTO) 68 % (42-75); PLATELET COUNT 315 10^3/uL (130-400); RED BLOOD COUNT 4.41 10^6/uL (4.35-5.85); RED CELL DISTRIBUTION WIDTH 15.6 % (10.0-14.5); WHITE BLOOD COUNT 5.7 10^3/uL (4.3-11.0)
[2017-04-14 14:03] LABS: BUN/CREATININE RATIO 11; CALCIUM 9.1 MG/DL (8.5-10.1); CARBON DIOXIDE 26 MMOL/L (21-32); CHLORIDE 104 MMOL/L (98-107); CREATININE SERUM 0.73 MG/DL (0.60-1.30); GFR ESTIMATED > 60; GLUCOSE 125 MG/DL (70-105); POTASSIUM 4.1 MMOL/L (3.6-5.0); SODIUM 138 MMOL/L (135-145)
[2017-04-21 13:39] LABS: BASOPHILS % (AUTO) 0 % (0-10); EOSINOPHILS % (AUTO) 1 % (0-10); HEMATOCRIT 39 % (40-54); HEMOGLOBIN 13.1 G/DL (13.3-17.7); LYMPHOCYTES # (AUTO) 1.6 X 10^3 (1.0-4.0); LYMPHOCYTES % (AUTO) 28 % (12-44); MEAN CORPUSCULAR HEMOGLOBIN 27 PG (25-34); MEAN CORPUSCULAR HGB CONC 34 G/DL (32-36); MEAN CORPUSCULAR VOLUME 81 FL (80-99); MEAN PLATELET VOLUME 11.3 FL (7.4-10.4); MONOCYTES # (AUTO) 0.5 X 10^3 (0.0-1.0); MONOCYTES % (AUTO) 8 % (0-12); NEUTROPHILS # (AUTO) 3.6 X 10^3 (1.8-7.8); NEUTROPHILS % (AUTO) 64 % (42-75); PLATELET COUNT 296 10^3/uL (130-400); RED BLOOD COUNT 4.78 10^6/uL (4.35-5.85); WHITE BLOOD COUNT 5.7 10^3/uL (4.3-11.0)
[2017-04-21 14:00] LABS: BUN/CREATININE RATIO 16; CALCIUM 9.6 MG/DL (8.5-10.1); CARBON DIOXIDE 26 MMOL/L (21-32); CHLORIDE 102 MMOL/L (98-107); CREATININE SERUM 0.76 MG/DL (0.60-1.30); GFR ESTIMATED > 60; GLUCOSE 119 MG/DL (70-105); POTASSIUM 4.4 MMOL/L (3.6-5.0); SODIUM 137 MMOL/L (135-145)
[~2017-04-29] VITALS: Ht 182.9 cm; Wt 83.0 kg
[~2017-04-29] MED LIST changes: +CISPLATIN IV SCH; +FOSAPREPITANT DIMEGLUMINE 150 MG in NS (IVPB) CANCER CENTER ONLY 150 ML IV SCH; +MAGNESIUM SULFATE IV SCH; +NS IV 1000 ML (CANCER CTR) IV SCH; +NS IV SCH; +PALONOSETRON 0.25 MG, DEXAMETHASONE 10 MG/NS 50 ML IVPB IV PRN
== END | disposition home or self-care (01) ==
LOC: ONC 01-29 15:28
PROVIDERS: ATTEND Internal Medicine Hematology & Oncology
DX: Z51.0 Encounter for antineoplastic radiation therapy (principal); Z51.11 Encounter for antineoplastic chemotherapy; C07 Malignant neoplasm of parotid gland; R91.1 Solitary pulmonary nodule; J43.9 Emphysema, unspecified; J45.909 Unspecified asthma, uncomplicated; M19.91 Primary osteoarthritis, unspecified site; K21.9 Gastro-esophageal reflux disease without esophagitis; F17.210 Nicotine dependence, cigarettes, uncomplicated; Z79.899 Other long term (current) drug therapy
CPT/HCPCS: 36415; 36591; 77300; 77301; 77332; 77334; 77336; 77338; 77386; 77470; 80048; 80053; 83735; 85025; 96367; 96375; 96413; 99213; 99214

== ENCOUNTER 2017-05-26 13:05 | Outpatient (RCR) | payer MEDICARE ==
[2017-04-30 13:58] LABS: BASOPHILS % (AUTO) 0 % (0-10); EOSINOPHILS % (AUTO) 0 % (0-10); HEMATOCRIT 36 % (40-54); HEMOGLOBIN 12.2 G/DL (13.3-17.7); LYMPHOCYTES % (AUTO) 22 % (12-44); MEAN CORPUSCULAR HEMOGLOBIN 28 PG (25-34); MEAN CORPUSCULAR HGB CONC 34 G/DL (32-36); MEAN CORPUSCULAR VOLUME 82 FL (80-99); MEAN PLATELET VOLUME 11.7 FL (7.4-10.4); MONOCYTES # (AUTO) 0.4 X 10^3 (0.0-1.0); MONOCYTES % (AUTO) 9 % (0-12); NEUTROPHILS # (AUTO) 3.3 X 10^3 (1.8-7.8); NEUTROPHILS % (AUTO) 69 % (42-75); PLATELET COUNT 169 10^3/uL (130-400); RED BLOOD COUNT 4.39 10^6/uL (4.35-5.85); RED CELL DISTRIBUTION WIDTH 14.7 % (10.0-14.5); WHITE BLOOD COUNT 4.8 10^3/uL (4.3-11.0)
[2017-04-30 14:21] LABS: ALANINE AMINOTRANSFERASE 71 U/L (0-55); ALKALINE PHOSPHATASE 84 U/L (40-136); BILIRUBIN,TOTAL 0.2 MG/DL (0.1-1.0); BUN/CREATININE RATIO 20; CALCIUM 9.6 MG/DL (8.5-10.1); CARBON DIOXIDE 30 MMOL/L (21-32); CHLORIDE 101 MMOL/L (98-107); CREATININE SERUM 0.74 MG/DL (0.60-1.30); GFR ESTIMATED > 60; GLUCOSE 136 MG/DL (70-105); MAGNESIUM 1.8 MG/DL (1.8-2.4); POTASSIUM 4.8 MMOL/L (3.6-5.0); SODIUM 137 MMOL/L (135-145); TOTAL PROTEIN 7.3 GM/DL (6.4-8.2)
[2017-05-07 13:37] LABS: BASOPHILS % (AUTO) 0 % (0-10); EOSINOPHILS % (AUTO) 0 % (0-10); HEMATOCRIT 35 % (40-54); HEMOGLOBIN 11.9 G/DL (13.3-17.7); LYMPHOCYTES # (AUTO) 0.8 X 10^3 (1.0-4.0); LYMPHOCYTES % (AUTO) 26 % (12-44); MEAN CORPUSCULAR HEMOGLOBIN 28 PG (25-34); MEAN CORPUSCULAR HGB CONC 34 G/DL (32-36); MEAN CORPUSCULAR VOLUME 82 FL (80-99); MEAN PLATELET VOLUME 10.3 FL (7.4-10.4); MONOCYTES # (AUTO) 0.1 X 10^3 (0.0-1.0); MONOCYTES % (AUTO) 5 % (0-12); NEUTROPHILS % (AUTO) 69 % (42-75); PLATELET COUNT 139 10^3/uL (130-400); RED BLOOD COUNT 4.24 10^6/uL (4.35-5.85); RED CELL DISTRIBUTION WIDTH 14.5 % (10.0-14.5); WHITE BLOOD COUNT 2.9 10^3/uL (4.3-11.0)
[2017-05-07 13:50] LABS: BUN/CREATININE RATIO 21; CALCIUM 9.6 MG/DL (8.5-10.1); CARBON DIOXIDE 27 MMOL/L (21-32); CHLORIDE 101 MMOL/L (98-107); CREATININE SERUM 0.76 MG/DL (0.60-1.30); GFR ESTIMATED > 60; GLUCOSE 137 MG/DL (70-105); POTASSIUM 4.6 MMOL/L (3.6-5.0); SODIUM 136 MMOL/L (135-145)
[2017-05-14 13:35] LABS: BASOPHILS % (AUTO) 1 % (0-10); EOSINOPHILS % (AUTO) 0 % (0-10); HEMATOCRIT 32 % (40-54); HEMOGLOBIN 10.9 G/DL (13.3-17.7); LYMPHOCYTES # (AUTO) 0.6 X 10^3 (1.0-4.0); LYMPHOCYTES % (AUTO) 35 % (12-44); MEAN CORPUSCULAR HEMOGLOBIN 28 PG (25-34); MEAN CORPUSCULAR HGB CONC 34 G/DL (32-36); MEAN CORPUSCULAR VOLUME 83 FL (80-99); MEAN PLATELET VOLUME 10.4 FL (7.4-10.4); MONOCYTES # (AUTO) 0.1 X 10^3 (0.0-1.0); MONOCYTES % (AUTO) 8 % (0-12); NEUTROPHILS % (AUTO) 57 % (42-75); PLATELET COUNT 133 10^3/uL (130-400); RED BLOOD COUNT 3.87 10^6/uL (4.35-5.85); RED CELL DISTRIBUTION WIDTH 13.8 % (10.0-14.5); WHITE BLOOD COUNT 1.8 10^3/uL (4.3-11.0)
[2017-05-14 13:54] LABS: BUN/CREATININE RATIO 22; CALCIUM 9.7 MG/DL (8.5-10.1); CARBON DIOXIDE 26 MMOL/L (21-32); CHLORIDE 99 MMOL/L (98-107); CREATININE SERUM 0.72 MG/DL (0.60-1.30); GFR ESTIMATED > 60; GLUCOSE 143 MG/DL (70-105); POTASSIUM 4.4 MMOL/L (3.6-5.0); SODIUM 135 MMOL/L (135-145)
[2017-05-21 13:51] LABS: BASOPHILS % (AUTO) 0 % (0-10); EOSINOPHILS % (AUTO) 0 % (0-10); HEMATOCRIT 29 % (40-54); HEMOGLOBIN 10.1 G/DL (13.3-17.7); LYMPHOCYTES # (AUTO) 0.5 X 10^3 (1.0-4.0); LYMPHOCYTES % (AUTO) 31 % (12-44); MEAN CORPUSCULAR HEMOGLOBIN 28 PG (25-34); MEAN CORPUSCULAR HGB CONC 35 G/DL (32-36); MEAN CORPUSCULAR VOLUME 80 FL (80-99); MEAN PLATELET VOLUME 9.9 FL (7.4-10.4); MONOCYTES # (AUTO) 0.3 X 10^3 (0.0-1.0); MONOCYTES % (AUTO) 16 % (0-12); NEUTROPHILS # (AUTO) 0.9 X 10^3 (1.8-7.8); NEUTROPHILS % (AUTO) 53 % (42-75); PLATELET COUNT 183 10^3/uL (130-400); RED BLOOD COUNT 3.57 10^6/uL (4.35-5.85); RED CELL DISTRIBUTION WIDTH 13.5 % (10.0-14.5); WHITE BLOOD COUNT 1.6 10^3/uL (4.3-11.0)
[2017-05-21 14:09] LABS: ALANINE AMINOTRANSFERASE 71 U/L (0-55); ALBUMIN 4.1 GM/DL (3.2-4.5); ALKALINE PHOSPHATASE 86 U/L (40-136); BILIRUBIN,TOTAL 0.4 MG/DL (0.1-1.0); BUN/CREATININE RATIO 20; CALCIUM 9.7 MG/DL (8.5-10.1); CARBON DIOXIDE 26 MMOL/L (21-32); CHLORIDE 98 MMOL/L (98-107); GFR ESTIMATED > 60; GLUCOSE 94 MG/DL (70-105); MAGNESIUM 1.3 MG/DL (1.8-2.4); POTASSIUM 5.1 MMOL/L (3.6-5.0); SODIUM 131 MMOL/L (135-145)
[~2017-05-26 13:05] MED LIST changes: -BARIUM SUSPENSION 2.1% (VANILLA SILQ) 450 ML PO ONE; +CISPLATIN IV SCH; +FOSAPREPITANT DIMEGLUMINE 150 MG in NS (IVPB) CANCER CENTER ONLY 150 ML IV SCH; -IOHEXOL 350 MG/ML 100 ML (OMNIPAQUE 350) VIAL IV ONE; +MAGNESIUM SULFATE IV SCH; -NS 250 ML (IVPB) BAG IV ONE; +NS IV 1000 ML (CANCER CTR) IV SCH; +NS IV SCH; +PALONOSETRON 0.25 MG, DEXAMETHASONE 10 MG/NS 50 ML IVPB IV PRN
== END 2017-07-29 | disposition home or self-care (01) ==
LOC: ONC 13:05
PROVIDERS: ATTEND Internal Medicine Hematology & Oncology
DX: Z51.0 Encounter for antineoplastic radiation therapy (principal); C44.42 Squamous cell carcinoma of skin of scalp and neck; F17.210 Nicotine dependence, cigarettes, uncomplicated; Z79.899 Other long term (current) drug therapy; R91.1 Solitary pulmonary nodule
CPT/HCPCS: 36591; 77336; 77386; 80048; 80053; 83735; 85025; 96367; 96375; 96413

== ENCOUNTER → 2017-05-26 | Outpatient (CLI) | payer MEDICARE ==
[~2017-05-26] MED LIST changes: +BARIUM SUSPENSION 2.1% (VANILLA SILQ) 450 ML PO ONE; -CISPLATIN IV SCH; -FOSAPREPITANT DIMEGLUMINE 150 MG in NS (IVPB) CANCER CENTER ONLY 150 ML IV SCH; +IOHEXOL 350 MG/ML 100 ML (OMNIPAQUE 350) VIAL IV ONE; -MAGNESIUM SULFATE IV SCH; +NS 250 ML (IVPB) BAG IV ONE; -NS IV 1000 ML (CANCER CTR) IV SCH; -NS IV SCH; -PALONOSETRON 0.25 MG, DEXAMETHASONE 10 MG/NS 50 ML IVPB IV PRN
--- NOTE | 2017-05-26 15:29 | Diagnostic Imaging Report ---
INDICATION: Adenocarcinoma. COMPARISON: Comparison made with prior PET scan from 01/28/2017. TECHNIQUE: Multiple contiguous axial images were obtained through the neck and chest after the uneventful bolus administration of intravenous contrast. FINDINGS: The visualized intracranial structures are unremarkable. The visualized sinuses and mastoid air cells are clear. The nasopharyngeal, oropharyngeal, and hypopharyngeal tissues are symmetric without mass effect. The previously seen large mass along the posterior aspect of the left parotid gland has been resected. No definite residual or recurrent mass is appreciated. There is minimal soft tissue thickening along the posterior aspect of the left mandibular ramus. This is likely postsurgical scarring, although minimal residual or recurrent mass in this region cannot be excluded. The right parotid gland is unremarkable. Submandibular glands are unremarkable. Thyroid is normal in appearance. There is scarring in both lung apices. Trachea is midline. Major vascular structures of the neck enhance in a normal fashion. There are mild degenerative changes in the cervical spine. There is biapical pleural thickening or scarring. There is minimal scarring in the right middle lobe. There is some patchy airspace disease in the right lung base. There is no pleural or pericardial fluid. There is no pneumothorax. Heart size is normal. There is no pathologically enlarged adenopathy in the chest. Thoracic aorta is normal in caliber without evidence of dissection. The visualized intra-abdominal structures are unremarkable. The previously seen nodule in the right middle lobe is no longer appreciated. The thoracic spine is unremarkable. IMPRESSION: Resection of the previously seen large mass along the posterior aspect of the left parotid gland. There is some minimal residual soft tissue thickening below the left parotid and posterior to the left mandible ramus. This is likely postsurgical scarring, although residual or recurrent mass in this region cannot be entirely excluded. Recommend clinical correlation and continued surveillance with PET scan as warranted. Biapical pleural thickening or scarring as well as some scarring in the right middle lobe. There is also some minimal patchy airspace disease in the medial aspect of the right lung base. The previously described mass in the medial aspect of the right middle lobe is no longer appreciated. There is no pathologically enlarged adenopathy in the chest. Dictated by: Dictated on workstation # [id number]
== END ==
LOC: RAD 13:35
PROVIDERS: ATTEND Internal Medicine Hematology & Oncology
DX: C44.42 Squamous cell carcinoma of skin of scalp and neck (principal); R91.8 Other nonspecific abnormal finding of lung field; Z72.0 Tobacco use; Z90.89 Acquired absence of other organs; Z98.890 Other specified postprocedural states
CPT/HCPCS: 70491; 71260

== ENCOUNTER → 2017-08-13 | Outpatient (CLI) | payer MEDICAID, MEDICARE ==
[~2017-08-13] MED LIST changes: -CISPLATIN IV SCH; -FOSAPREPITANT DIMEGLUMINE 150 MG in NS (IVPB) CANCER CENTER ONLY 150 ML IV SCH; +IOHEXOL 350 MG/ML 100 ML (OMNIPAQUE 350) VIAL IV ONE; -MAGNESIUM SULFATE IV SCH; +NS 250 ML (IVPB) BAG IV ONE; -NS IV 1000 ML (CANCER CTR) IV SCH; -NS IV SCH; -PALONOSETRON 0.25 MG, DEXAMETHASONE 10 MG/NS 50 ML IVPB IV PRN
--- NOTE | 2017-08-13 17:21 | Diagnostic Imaging Report ---
CT neck and chest with contrast. INDICATION: History of squamous cell carcinoma of the left neck. Three-month followup. Comparison is made to prior study from May 26, 2017. TECHNIQUE: After intravenous administration of contrast, CT imaging of the neck and chest was performed. FINDINGS: There are prior operative changes related to resection of the patient's large left parotid space mass lesion on previous PET examination from January 28, 2017. There is a small degree of postsurgical scarring at the prior resection site but no evidence of recurrent developing mass lesion. There is no regional lymphadenopathy demonstrated. The right parotid gland unremarkable. The submandibular glands appear mildly edematous. There also appears to be some edema and thickening of the epiglottis and the preepiglottic space as well as some thickening of the aryepiglottic folds. This is favored to likely be reflective of sequela related to radiation therapy. Clinical correlation appreciated. The posterior nasopharynx and oropharynx appear appropriately symmetric. There is no abnormal process evident within the prevertebral or retropharyngeal space. The visualized intracranial contents demonstrate no evidence of mass effect or abnormal intracranial enhancement. There is flow within the major intracranial arterial vessels. The dural venous sinuses appear patent. The orbital contents are unremarkable. There is a small degree of mucosal thickening and fluid in the right maxillary sinus. Sinuses are otherwise clear. The mastoids and the middle ears appear clear. Note is made of some degenerative endplate changes within the cervical spine but there is no suspicious lytic or blastic lesion demonstrated. CT of the chest demonstrates some scarring at the lung apices. There is also some chronic scarring within the right middle lobe. There is no focal infiltrate. There is no pleural effusion. There is no pneumothorax. There is no evidence of a pulmonary nodule or developing mass. There are no pathologically enlarged mediastinal, hilar or axillary lymph nodes. There is a right internal jugular port. The thoracic aorta is normal in caliber. The central pulmonary arteries demonstrate no evidence of embolism. There is no pericardial effusion. The visualized portion of the upper abdomen demonstrates no liver mass. There is no adrenal mass. There is no acute upper abdomen inflammatory process demonstrated. A percutaneous gastrostomy tube is noted. IMPRESSION: 1. Prior operative changes related to previous left parotid space mass resection. There are no CT findings to suggest recurrent developing mass at that location and there is no regional adenopathy. 2. Edematous and thickened appearance of the hypopharynx and supraglottic laryngeal structures is favored to be reflective of radiation therapy changes. Clinical correlation appreciated. 3. No findings to suggest metastatic disease to the chest. There is no pulmonary nodule or mass or evidence of abnormal adenopathy. 4. No evidence of metastatic disease within the upper abdomen. 5. No suspicious osseous lesions demonstrated. Dictated by: Dictated on workstation # [id number]
== END ==
LOC: RAD 12:58
PROVIDERS: ATTEND Internal Medicine Hematology & Oncology
DX: C44.42 Squamous cell carcinoma of skin of scalp and neck (principal); R91.8 Other nonspecific abnormal finding of lung field; Z72.0 Tobacco use
CPT/HCPCS: 70491; 71260

== ENCOUNTER 2017-11-05 12:57 | Outpatient (RCR) | payer MEDICARE, MEDICAID ==
[2017-08-12 13:57] LABS: BASOPHILS % (AUTO) 0 % (0-10); EOSINOPHILS # (AUTO) 0.1 10^3/uL (0.0-0.3); EOSINOPHILS % (AUTO) 1 % (0-10); HEMATOCRIT 35 % (40-54); LYMPHOCYTES # (AUTO) 1.1 X 10^3 (1.0-4.0); LYMPHOCYTES % (AUTO) 24 % (12-44); MEAN CORPUSCULAR HEMOGLOBIN 31 PG (25-34); MEAN CORPUSCULAR HGB CONC 34 G/DL (32-36); MEAN CORPUSCULAR VOLUME 90 FL (80-99); MEAN PLATELET VOLUME 10.7 FL (7.4-10.4); MONOCYTES # (AUTO) 0.5 X 10^3 (0.0-1.0); MONOCYTES % (AUTO) 11 % (0-12); NEUTROPHILS # (AUTO) 3.1 X 10^3 (1.8-7.8); NEUTROPHILS % (AUTO) 65 % (42-75); PLATELET COUNT 216 10^3/uL (130-400); RED BLOOD COUNT 3.93 10^6/uL (4.35-5.85); RED CELL DISTRIBUTION WIDTH 13.1 % (10.0-14.5); WHITE BLOOD COUNT 4.9 10^3/uL (4.3-11.0)
[2017-08-12 14:16] LABS: ALANINE AMINOTRANSFERASE 13 U/L (0-55); ALKALINE PHOSPHATASE 81 U/L (40-136); BILIRUBIN,TOTAL 0.4 MG/DL (0.1-1.0); BUN/CREATININE RATIO 11; CALCIUM 9.4 MG/DL (8.5-10.1); CARBON DIOXIDE 28 MMOL/L (21-32); CHLORIDE 106 MMOL/L (98-107); CREATININE SERUM 0.76 MG/DL (0.60-1.30); GFR ESTIMATED > 60; GLUCOSE 98 MG/DL (70-105); MAGNESIUM 1.8 MG/DL (1.8-2.4); SODIUM 141 MMOL/L (135-145); TOTAL PROTEIN 6.5 GM/DL (6.4-8.2)
[~2017-11-05 12:57] MED LIST changes: -IOHEXOL 350 MG/ML 100 ML (OMNIPAQUE 350) VIAL IV ONE; -NS 250 ML (IVPB) BAG IV ONE
[2017-11-05 13:44] LABS: BASOPHILS % (AUTO) 0 % (0-10); EOSINOPHILS % (AUTO) 0 % (0-10); HEMATOCRIT 38 % (40-54); HEMOGLOBIN 12.8 G/DL (13.3-17.7); LYMPHOCYTES # (AUTO) 0.8 X 10^3 (1.0-4.0); LYMPHOCYTES % (AUTO) 9 % (12-44); MEAN CORPUSCULAR HEMOGLOBIN 29 PG (25-34); MEAN CORPUSCULAR HGB CONC 34 G/DL (32-36); MEAN CORPUSCULAR VOLUME 85 FL (80-99); MEAN PLATELET VOLUME 10.5 FL (7.4-10.4); MONOCYTES # (AUTO) 0.4 X 10^3 (0.0-1.0); MONOCYTES % (AUTO) 5 % (0-12); NEUTROPHILS % (AUTO) 85 % (42-75); PLATELET COUNT 281 10^3/uL (130-400); RED BLOOD COUNT 4.43 10^6/uL (4.35-5.85); RED CELL DISTRIBUTION WIDTH 14.8 % (10.0-14.5); WHITE BLOOD COUNT 8.2 10^3/uL (4.3-11.0)
[2017-11-05 14:05] LABS: ALANINE AMINOTRANSFERASE 13 U/L (0-55); ALBUMIN 4.1 GM/DL (3.2-4.5); ALKALINE PHOSPHATASE 90 U/L (40-136); BILIRUBIN,TOTAL 0.5 MG/DL (0.1-1.0); BUN/CREATININE RATIO 9; CALCIUM 9.6 MG/DL (8.5-10.1); CARBON DIOXIDE 26 MMOL/L (21-32); CHLORIDE 100 MMOL/L (98-107); CREATININE SERUM 0.74 MG/DL (0.60-1.30); GFR ESTIMATED > 60; GLUCOSE 129 MG/DL (70-105); MAGNESIUM 1.8 MG/DL (1.8-2.4); POTASSIUM 3.9 MMOL/L (3.6-5.0); SODIUM 135 MMOL/L (135-145); TOTAL PROTEIN 6.8 GM/DL (6.4-8.2)
== END 2017-11-10 | disposition home or self-care (01) ==
LOC: ONC 12:57
PROVIDERS: ATTEND Internal Medicine Hematology & Oncology
DX: C44.42 Squamous cell carcinoma of skin of scalp and neck (principal); F17.210 Nicotine dependence, cigarettes, uncomplicated; Z79.899 Other long term (current) drug therapy; R91.1 Solitary pulmonary nodule
CPT/HCPCS: 36415; 36591; 80053; 83735; 85025; 99213

== ENCOUNTER 2017-11-12 12:55 | Outpatient (RCR) | payer MEDICARE | END 2017-11-23 | disposition home or self-care (01) | LOC: ONC 12:55 | PROVIDERS: ATTEND Internal Medicine Hematology & Oncology | DX: C44.42 Squamous cell carcinoma of skin of scalp and neck (principal); R91.1 Solitary pulmonary nodule; F17.210 Nicotine dependence, cigarettes, uncomplicated; Z79.899 Other long term (current) drug therapy | CPT/HCPCS: 99213 ==

== ENCOUNTER 2018-09-28 16:00 | Emergency (ER) | payer MEDICARE ==
[~2018-09-28] VITALS: Ht 182.9 cm; Wt 68.0 kg
[2018-09-28] MEDS ORDERED: MIDAZOLAM 5 MG/5 ML (VERSED) VIAL IJ ONE (16:03)
[2018-09-28] MEDS ORDERED: ETOMIDATE IV SOLN 20 MG/10 ML VIAL IV ONE (16:03)
[2018-09-28] MEDS ORDERED: SUCCINYLCHOLINE INJ 100 MG/5 ML SYR INJ ONE (16:03)
[2018-09-28] MEDS ORDERED: RT-ALBUTEROL/IPRATROPIUM 3 ML (DUONEB) VIAL ONE (16:10)
[2018-09-28] MEDS ORDERED: RT-ALBUTEROL/IPRATROPIUM 3 ML (DUONEB) VIAL INH ONE (16:15)
[2018-09-28] MEDS ORDERED: LACTATED RINGERS 1,000 ML IV ONE ×3 (16:18→17:04)
[2018-09-28 16:33] LABS: BASOPHILS # (AUTO) 0.1 10^3/uL (0.0-0.1); BASOPHILS % (AUTO) 1 % (0-10); EOSINOPHILS % (AUTO) 0 % (0-10); HEMATOCRIT 42 % (40-54); HEMOGLOBIN 13.6 G/DL (13.3-17.7); LYMPHOCYTES # (AUTO) 1.3 X 10^3 (1.0-4.0); LYMPHOCYTES % (AUTO) 8 % (12-44); MEAN CORPUSCULAR HEMOGLOBIN 27 PG (25-34); MEAN CORPUSCULAR HGB CONC 33 G/DL (32-36); MEAN CORPUSCULAR VOLUME 84 FL (80-99); MONOCYTES # (AUTO) 0.9 X 10^3 (0.0-1.0); MONOCYTES % (AUTO) 5 % (0-12); NEUTROPHILS # (AUTO) 13.9 X 10^3 (1.8-7.8); NEUTROPHILS % (AUTO) 86 % (42-75); PLATELET COUNT 518 10^3/uL (130-400); WHITE BLOOD COUNT 16.2 10^3/uL (4.3-11.0)
[2018-09-28 16:36] LABS: ABG BASE EXCESS 7.2 MMOL/L (-2.5-2.5); ABG OXYGEN SATURATION 88 % (94-100); ABG PCO2 53 MMHG (35-45); ABG PO2 58 MMHG (79-93); ABG TCO2 33.8 MMOL/L (21.0-31.0); ALLENS TEST YES-POS; INSPIRED O2 10L; VENTILATOR NO
[2018-09-28 16:37] LABS: PATIENT TEMP 97.3
--- NOTE | 2018-09-28 16:41 | NUR ---
Patient is placed on vapotherm and Oxygen saturation is now 96%. Patient is awake and able to talk a few words. He states he is feeling slightly better with the Vapotherm. He does complain of pain all over. Patient's states the patient is unable to walk or stand today due to feeling weak. Patient states he fell twice yesterday and once today due to weakness. Patient states left knee has abrasions due to the fall. There is a small amount of brasions present to the left knee. No deformities present.
--- NOTE | 2018-09-28 16:44 | Diagnostic Imaging Report ---
INDICATION: Respiratory distress. EXAMINATION: Portable chest at 4:36 PM. FINDINGS: The right subclavian Port-A-Cath tip projects over the SVC. There is diffuse interstitial thickening in the lungs which appears to have progressed since 02/05/2017. IMPRESSION: The interstitial fibrosis has shown unfavorable progression since 02/05/2017. Dictated by: Dictated on workstation # [id number]
[2018-09-28 16:59] LABS: BAND NEUTROPHILS 28 %; BASOPHILS % (MANUAL) 0 %; EOSINOPHILS % (MANUAL) 0 %; LYMPHOCYTES % (MANUAL) 7 %; MONOCYTES % (MANUAL) 5 %; NEUTROPHILS % (MANUAL) 60 %; POLYCHROMASIA SLIGHT
[2018-09-28 17:00] LABS: ANISOCYTOSIS SLIGHT
[2018-09-28 17:04] LABS: ALANINE AMINOTRANSFERASE 23 U/L (0-55); ALBUMIN 3.2 GM/DL (3.2-4.5); ALKALINE PHOSPHATASE 152 U/L (40-136); BILIRUBIN,TOTAL 0.4 MG/DL (0.1-1.0); BUN/CREATININE RATIO 32; CALCIUM 10.6 MG/DL (8.5-10.1); CARBON DIOXIDE 29 MMOL/L (21-32); CHLORIDE 96 MMOL/L (98-107); CREATININE SERUM 0.77 MG/DL (0.60-1.30); GFR ESTIMATED > 60; GLUCOSE 138 MG/DL (70-105); POTASSIUM 4.2 MMOL/L (3.6-5.0); SODIUM 137 MMOL/L (135-145); TOTAL PROTEIN 8.3 GM/DL (6.4-8.2)
[2018-09-28] MEDS ORDERED: methylPREDNISolone 125 MG (Solu-MEDROL) VIAL IV STA (17:19)
[2018-09-28] MEDS ORDERED: NS 100 ML (IVPB) BAG IV ONE (17:45)
[2018-09-28] MEDS ORDERED: PIPERACILLIN SODIUM/TAZOBACTAM 4.5 GM in NS (IVPB) 100 ML IV ONE (17:45)
[2018-09-28] MEDS ORDERED: HOLD METFORMIN - RECEIVED CONTRAST 20 ML VIAL IV SCH (17:45)
[2018-09-28] MEDS ORDERED: IOHEXOL 350 MG/ML 100 ML (OMNIPAQUE 350) VIAL IV ONE (17:45)
[2018-09-28 17:47] LABS: INR 1.2 (0.8-1.4); PROTHROMBIN TIME PATIENT 15.8 SEC (12.2-14.7)
--- NOTE | 2018-09-28 18:01 | ED General ---
General Chief Complaint: Respiratory Problems Stated Complaint: WEAKNESS/NOT EATING OR DRINKING Nursing Triage Note: Patient brought to ER room 7 via wheelchair with complaint of increased weakness, shortness of breath, cough, and not eating or drinking. These symptoms have been occurring for approximately 2 weeks with worsening the last few days. Patient's spouse states the patient has only drank several ensures in the last two weeks. Patient is in obvious respiratory distress. Nursing Sepsis Screen: No Definite Risk Source of Information: Patient, Family Exam Limitations: Physical Impairments (SY KANG MD) History of Present Illness Date Seen by Provider: Sep 28, 2018 Time Seen by Provider: 16:17 Initial Comments Here with family reports that he's been too weak to eat or drink for the last 2 weeks and overall not doing well. He is really unable to walk very far. Does have history of squamous cell carcinoma with metastatic disease that is apparently cleared after chemotherapy and radiation and surgery and is currently on surveillance. Was previously living here but moved to [place]. He is back in the area currently and became quite sick. This seems to be a progression of his illness though. Denies fevers or vomiting but patient is very poor historian due to current medical condition. Initial O2 sat on arrival was 61% on room air. does not have much history either. She only reports that he is having difficulty with breathing and is not eating or drinking well. Does have history of interstitial fibrosis of the lungs. He does continue to smoke one to 2 packs of cigarettes daily. Timing/Duration: Other (2 weeks) Severity: Severe Modifying Factors: worse with Movement; improves with Rest Associated Systoms: No Chest Pain; Cough; No Fever/Chills, No Nausea/Vomiting; Shortness of Air, Weakness (SY KANG MD) Allergies and Home Medications Allergies Coded Allergies: No Known Drug Allergies (Unverified , 01/31/17) Home Medications Albuterol Sulfate 1 Puff Puff, 2 PUFF IH Q4H PRN for SHORTNESS OF BREATH, (Reported) 1 PUFF = 90 MCG Clonazepam 1 Mg Tab.rapdis, 1 MG PO BID, (Reported) Duloxetine HCl 60 Mg Capsule.dr, 90 MG PO DAILY, (Reported) TAKE 1 1/2 OF 60MG TAB Fluticasone/Vilanterol 1 Each Blst.w.dev, 1 EACH IH DAILY, (Reported) Morphine Sulfate 60 Mg Tablet.er, 60 MG PO BID PRN for PAIN-MODERATE TO SEVERE Prescribed by: JUDE MCCURDY on 04/02/17 1112 Nabumetone 500 Mg Tablet, 500 MG PO BID, (Reported) Omeprazole 40 Mg Capsule.dr, 40 MG PO DAILY, (Reported) Quetiapine Fumarate 300 Mg Tablet, 300 MG PO HS, (Reported) Tizanidine HCl 4 Mg Capsule, 4 MG PO TID, (Reported) Patient Home Medication List Home Medication List Reviewed: Yes (SY KANG MD) Review of Systems Review of Systems Constitutional: see HPI; No fever; malaise, weakness Respiratory: cough, short of breath Gastrointestinal: no symptoms reported Genitourinary: decreased output; No pain Musculoskeletal: joint pain, muscle weakness Skin: no symptoms reported Psychiatric/Neurological: Weakness Unable to complete review of systems due to clinical condition (SY KANG MD) Past Kpbmhhk-Ygrlnh-Plfztl Hx Past Med/Social Hx: Reviewed Nursing Past Med/Soc Hx (SY KANG MD) Patient Social History Alcohol Use: Occasionally Uses Number of Drinks Today: AA Alcohol Beverage of Choice: Beer Recreational Drug Use: Yes (SOBER X8 MONTHS) Smoking Status: Current Everyday Smoker Type Used: Cigarettes 2nd Hand Smoke Exposure: Yes Recent Foreign Travel: No Contact w/Someone Who Travel: No Recent Infectious Disease Expo: No Recent Hopitalizations: No Physical Abuse: No Sexual Abuse: No Mistreated: No Fear: No (SY KANG MD) Immunizations Up To Date Date of Pneumonia Vaccine: Nov 01, 2013 (SY KANG MD) Seasonal Allergies Seasonal Allergies: Yes (SY KANG MD) Past Medical History Surgeries: Yes (knee, RADICAL NECK DISSECTION) Orthopedic Respiratory: Yes (WEARS O2-3LPRN) COPD Cardiac: No Neurological: Yes (HASNT HAD SEIZURE IN YEARS) Neuropathy, Seizure Disorder Reproductive Disorders: No Sexually Transmitted Disease: No HIV/AIDS: No Gastrointestinal: No Musculoskeletal: Yes Chronic Back Pain Endocrine: No Loss of Vision: Denies Hearing Impairment: Denies Cancer: Yes (HEAD AND NECK) What Type of Treatment Did You: Chemotherapy Psychosocial: No Anxiety, Depression Integumentary: No Blood Disorders: No Adverse Reaction/Blood Tranf: No (SY KANG MD) Family Medical History Reviewed Nursing Family Hx (SY KANG MD) Physical Exam-Suspected Sepsis Physical Exam Vital Signs Vital Signs - First Documented 09/28/18 09/28/18 09/28/18 16:15 16:20 18:55 Temp 97.3 Pulse 107 Resp 24 B/P (MAP) 145/90 (108) Pulse Ox 60 O2 Delivery Room Air O2 Flow Rate 10.00 FiO2 100 (ANGE DUENAS) Vital Signs Capillary Refill : Greater Than 3 Seconds (SY KANG MD) Blood Pressure Mean: 108 Height, Weight, BMI Height: 6'0" Weight: 150lbs. 0.0oz. 68.497389hv; 23.7 BMI Method:Estimated General Appearance: WD/WN, Moderate Distress HEENT: PERRL/EOMI, Other (dry mucous membranes with poor oral hygiene) Neck: Non Tender Respiratory: Crackles, Wheezing Cardiovascular: No Murmur, Tachycardia Gastrointestinal: Non Tender, Soft Back: Normal Inspection, No CVA Tenderness, No Vertebral Tenderness Extremity: Normal Range of Motion, Non Tender Neurologic/Psychiatric: Alert, Oriented x3 Skin: normal color, warm/dry (SY KANG MD) Focused Exam Lactate Level 09/28/18 16:18: Lactic Acid Level 1.59 (ANGE DUENAS) Lactic Acid Level (ANGE DUENAS) Progress/Results/Core Measures Suspected Sepsis Recent Fever Within 48 Hours: No Infection Criteria Present: None New/Unexplained Altered Menta: Yes Sepsis Screen: No Definite Risk SIRS Temperature:97.3 Pulse: 107 Respiratory Rate: 24 Laboratory Tests 09/28/18 16:18: White Blood Count 16.2H Blood Pressure 145 /90 Mean: 108 09/28/18 16:18: Lactic Acid Level 1.59 Laboratory Tests 09/28/18 16:18: Creatinine 0.77, INR Comment 1.2, Platelet Count 518H, Total Bilirubin 0.4 (SY KANG MD) Results/Orders Lab Results Laboratory Tests Test 09/28/18 16:18 09/28/18 16:26 09/28/18 19:30 09/28/18 19:50 Range/Units White Blood Count 16.2 H 4.3-11.0 10^3/uL Red Blood Count 5.01 4.35-5.85 10^6/uL Hemoglobin 13.6 13.3-17.7 G/DL Hematocrit 42 40-54 % Mean Corpuscular Volume 84 80-99 FL Mean Corpuscular Hemoglobin 27 25-34 PG Mean Corpuscular Hemoglobin Concent 33 32-36 G/DL Red Cell Distribution Width 15.0 H 10.0-14.5 % Platelet Count 518 H 130-400 10^3/uL Mean Platelet Volume 10.0 7.4-10.4 FL Neutrophils (%) (Auto) 86 H 42-75 % Lymphocytes (%) (Auto) 8 L 12-44 % Monocytes (%) (Auto) 5 0-12 % Eosinophils (%) (Auto) 0 0-10 % Basophils (%) (Auto) 1 0-10 % Neutrophils # (Auto) 13.9 H 1.8-7.8 X 10^3 Lymphocytes # (Auto) 1.3 1.0-4.0 X 10^3 Monocytes # (Auto) 0.9 0.0-1.0 X 10^3 Eosinophils # (Auto) 0.0 0.0-0.3 10^3/uL Basophils # (Auto) 0.1 0.0-0.1 10^3/uL Neutrophils % (Manual) 60 % Lymphocytes % (Manual) 7 % Monocytes % (Manual) 5 % Eosinophils % (Manual) 0 % Basophils % (Manual) 0 % Band Neutrophils 28 % Polychromasia SLIGHT Anisocytosis SLIGHT Prothrombin Time 15.8 H 12.2-14.7 SEC INR Comment 1.2 0.8-1.4 Activated Partial Thromboplast Time 36 H 24-35 SEC Sodium Level 137 135-145 MMOL/L Potassium Level 4.2 3.6-5.0 MMOL/L Chloride Level 96 L 98-107 MMOL/L Carbon Dioxide Level 29 21-32 MMOL/L Anion Gap 12 5-14 MMOL/L Blood Urea Nitrogen 25 H 7-18 MG/DL Creatinine 0.77 0.60-1.30 MG/DL Estimat Glomerular Filtration Rate > 60 BUN/Creatinine Ratio 32 Glucose Level 138 H 70-105 MG/DL Lactic Acid Level 1.59 0.50-2.00 MMOL/L Calcium Level 10.6 H 8.5-10.1 MG/DL Corrected Calcium 11.2 H 8.5-10.1 MG/DL Total Bilirubin 0.4 0.1-1.0 MG/DL Aspartate Amino Transf (AST/SGOT) 21 5-34 U/L Alanine Aminotransferase (ALT/SGPT) 23 0-55 U/L Alkaline Phosphatase 152 H 40-136 U/L Troponin I < 0.028 <0.028 NG/ML B-Type Natriuretic Peptide 158.6 H <100.0 PG/ML Total Protein 8.3 H 6.4-8.2 GM/DL Albumin 3.2 3.2-4.5 GM/DL Blood Gas Puncture Site RRAD L RAD Blood Gas Patient Temperature 97.3 97.9 Arterial Blood pH 7.40 7.28 *L 7.37-7.43 Arterial Blood Partial Pressure CO2 53 H 70 H 35-45 MMHG Arterial Blood Partial Pressure O2 58 L 84 79-93 MMHG Arterial Blood HCO3 32 H 32 H 23-27 MMOL/L Arterial Blood Total CO2 33.8 H 34.3 H 21.0-31.0 MMOL/L Arterial Blood Oxygen Saturation 88 L 94 94-100 % Arterial Blood Base Excess 7.2 H 5.6 H -2.5-2.5 MMOL/L David Test YES-POS YES-POS Blood Gas Ventilator Setting NO YES Blood Gas Inspired Oxygen 10L 70% Urine Color YELLOW Urine Clarity CLEAR Urine pH 6.5 5-9 Urine Specific [place] 1.005 L 1.016-1.022 Urine Protein 2+ H NEGATIVE Urine Glucose (UA) NEGATIVE NEGATIVE Urine Ketones NEGATIVE NEGATIVE Urine Nitrite NEGATIVE NEGATIVE Urine Bilirubin NEGATIVE NEGATIVE Urine Urobilinogen NORMAL NORMAL MG/DL Urine Leukocyte Esterase NEGATIVE NEGATIVE Urine RBC (Auto) 2+ H NEGATIVE Urine RBC RARE /HPF Urine WBC RARE /HPF Urine Squamous Epithelial Cells RARE /HPF Urine Crystals PRESENT H /LPF Urine Calcium Oxalate Crystals RARE H /LPF Urine Bacteria TRACE /HPF Urine Casts NONE /LPF Urine Mucus SMALL H /LPF Urine Culture Indicated NO (ANGE DUENAS) My Orders Orders - ANGE DUENAS Propofol Drip (Icu) (Diprivan Drip (Icu) (09/28/18 19:07) Ns Iv 1000 Ml (Sodium Chloride 0.9%) (09/28/18 19:09) Chest 1 View, Ap/Pa Only (09/28/18 19:25) Arterial Blood Gas (09/28/18 19:28) Catheter(Urinary) Insert & Ass 03,15 (09/28/18 19:28) Norepinephrine (Levophed) (09/28/18 20:30) Ns (Ivpb) (Sodium Chloride 0.9%) (09/28/18 20:30) (ANGE DUENAS) Medications Given in ED Current Medications Medications Dose Ordered Sig/Asmita Route Start Time Stop Time Status Last Admin Dose Admin Albuterol/ Ipratropium 3 ml ONCE ONCE INH 09/28/18 16:15 09/28/18 16:18 DC 09/28/18 16:20 3 ML Lactated Ringer's 1,000 ml @ 0 mls/hr Q0M ONCE IV 09/28/18 16:47 09/28/18 16:48 DC 09/28/18 16:26 1,000 MLS/HR Lactated Ringer's 1,000 ml @ 0 mls/hr Q0M ONCE IV 09/28/18 17:04 09/28/18 17:05 DC 09/28/18 17:07 1,000 MLS/HR Piperacillin Sod/ Tazobactam Sod 4.5 gm/Sodium Chloride 100 ml @ 200 mls/hr ONCE ONCE IV 09/28/18 17:45 09/28/18 18:14 DC 09/28/18 18:23 200 MLS/HR (ANGE DUENAS) Vital Signs/I&O 09/28/18 09/28/18 09/28/18 09/28/18 16:15 16:20 18:55 20:06 Temp 97.3 Pulse 107 84 Resp 24 23 B/P (MAP) 145/90 (108) Pulse Ox 60 89 96 97 O2 Delivery Room Air OxyMask Vapotherm O2 Flow Rate 10.00 20.00 FiO2 100 70 (ANGE DUENAS) Vital Signs/I&O Capillary Refill : Greater Than 3 Seconds (SY KANG MD) Blood Pressure Mean: 108 Progress Note : Progress Note Seen and evaluated on arrival. IV and port access initiated. Labs, blood cultures, EKG and chest x-ray ordered. ABG ordered. Initiated they both arms as well as DuoNeb therapy. This did help. Blood cultures and lactic acid ordered. Patient's O2 sats increased from 61% on room air to 96% on the Vapotherm at 20 L flow and 100% FiO2. Monitor patient. 1732: I did discuss the case with Dr. Issa. Labs, x-ray and current status reviewed. He is improved on Vapotherm. There is concerns about interstitial fibrosis and Solu-Medrol 125 mg IV has been given. We will initiate dual antibiotic therapy given his lung status and laboratory findings concerning for pneumonia. 1742: I did discuss the case with Dr. Joiner. He agrees with therapy's thus far and recommends Solu-Medrol 40 mg IV every 6 hours as well as albuterol nebs every 4 hours and every 2 hours when necessary. Both are okay with admission to the floor with current status but we will monitor for significant changes and movement ICU/step down if indicated. Dr. Issa has requested CT angiogram of the chest which was ordered. Zosyn 4.5 g IV initiated and we will continue Zosyn and vancomycin therapy. [address] angiogram and care transferred to Dr. Duenas pending results. (SY KANG MD) Progress Note #1: Progress Note Assume care of the patient at shift change. The patient is resting more comfortably now. We have switched his Vapotherm up to 40 L flow and decreased his oxygen FiO2 to 90%. This is improved his oxygen sats from 92% up to 99%. We'll continue to make adjustments and await the results of the CT angiogram. Lab results for heart and kidney are favorable. Differential is favoring pneumonia versus exacerbation of interstitial lung disease versus less likely a pulmonary embolism or other obstructive process. He has already received adequate broad-spectrum antibiotics, steroids and respiratory support and says he feels much better. Updates made to patient and . Progress Note #2: Time: 20:06 Progress Note ABG came back with a worsening CO2 of 70 and oxygen okay in the 80s. We increased his PEEP to 7 and his peak pressures are still about 35-37. We increased his rate to 20 and his tidal volume to 500. If he still here in 30-60 minutes we'll repeat an ABG. FiO2 70%. Progress Note #3: Time: 20:42 Progress Note In order to obtain adequate sedation with propofol so we did do good suctioning and get his thin brown secretions out we have to sacrifice his blood pressure down to a map of 62 so we added some Levophed at 0.1 mcg/kg/m. Left a voicemail with [facility] [place] Dr. Mokhtar to update the team that we are adding pressors to the patient. When we lighten his sedation his blood pressure comes up to 110 systolic however he bucks, kicks and coughs. (ANGE DUENAS) ECG Initial ECG Impression Date: Sep 28, 2018 Initial ECG Impression Time: 16:35 Initial ECG Rate: 102 Initial ECG Rhythm: S.Tach Comment Sinus tachycardia with left posterior fascicular block. Rightward axis. No evidence of ST elevation DE. No previous available for comparison. Interpreted by me. (SY KANG MD) Diagnostic Imaging Diagonstic Imaging: Xray Plain Films/CT/US/NM/MRI: chest Comments NAME: LENY HILL [facility] REC#: [id number] PT STATUS: REG ER : 1955 PHYSICIAN: DAISHA BOOTH APRN ADMIT DATE: 09/28/18/ER Signed Date of Exam: 09/28/18 CHEST 1 VIEW, AP/PA ONLY INDICATION: Respiratory distress. EXAMINATION: Portable chest at 4:36 PM. FINDINGS: The right subclavian Port-A-Cath tip projects over the SVC. There is diffuse interstitial thickening in the lungs which appears to have progressed since 02/05/2017. IMPRESSION: The interstitial fibrosis has shown unfavorable progression since 02/05/2017. Dictated by: Dictated on workstation # [id number] Dict: 09/28/181641 Trans: 09/28/181646 Interpreted by: SY TOM MD Electronically signed by: SY TOM MD 09/28/181646 (SY KANG MD) Diagonstic Imaging: CT (angiogram) Plain Films/CT/US/NM/MRI: chest Comments NAME: LENY HILL [facility] REC#: [id number] PT STATUS: REG ER : 1955 PHYSICIAN: SY KANG MD ADMIT DATE: 09/28/18/ER Draft Date of Exam:09/28/18 CT ANGIO CHEST W PROCEDURE: CT angiography of the chest with contrast. TECHNIQUE: Multiple contiguous axial images were obtained through the chest after uneventful bolus administration of intravenous contrast. 3D reconstructed CTA MIP acquisitions were also performed. Auto Exposure Controls were utilized during the CT exam to meet ALARA standards for radiation dose reduction. DATE: September 28, 2018. COMPARISON: Chest radiograph September 28, 2018. CT neck and chest August 13, 2017. INDICATION: 62-year-old male, weakness, shortness of breath, cough. FINDINGS: There is extensive multifocal bilateral tree-in-bud nodularity. There are predominantly linear and wedge-shaped areas of consolidation in the right middle lobe additionally present. There are peripheral predominantly linear opacities in the right lower lobe which were also present. There is nonspecific opacification within the right the middle lobe and right lower lobe bronchi. There is bronchial wall thickening diffusely. There is also nonspecific partial opacification within left lower lobe and left upper lobe bronchi with left-sided bronchial wall thickening. There are additional areas of linear and additional nonspecific opacification in the right lung apex and left lung apex. There are mild peripheral linear opacities in the left upper lobe and left lower lobe also present. There is no pneumothorax. There is no sizable pleural effusion. There is no identified pulmonary embolus. The main pulmonary artery is normal in caliber. The heart is not enlarged. There is no pericardial effusion. There is a right hilar lymph node measuring 11 mm in short axis and an additional abnormally enlarged right hilar lymph nodes. There are also mildly prominent abnormally enlarged left hilar lymph nodes as well as multiple subcarinal, left paratracheal, and subcentimeter short axis AP window lymph nodes. There is no identified abnormally enlarged axillary lymph node. The visualized portions of the upper abdomen are grossly unremarkable in appearance. There is avascular necrosis involving the right humeral head best illustrated on axial image 23 and adjacent sequential images. IMPRESSION: CT CHEST. 1. Extensive multifocal bilateral tree in bud nodularity. This most likely relates to a process spreading via endobronchial means which is most typically an infectious bronchiolitis or aspiration. Atypical infectious etiologies are in the differential diagnosis. These are new findings since the prior CT chest of August 13, 2017. 2. Multifocal bilateral bronchial wall thickening and nonspecific opacification within the airways which may be related to the above process. 3. Abnormally enlarged bilateral hilar and additional mediastinal lymph nodes likely relating to the history of tree-in-bud nodular consolidative process. 4. No identified pulmonary embolus. 5. Avascular necrosis involving the right humeral head. Dictated on workstation # [id number] Dict: 09/28/18 1842 Trans: 09/28/18 1858 [facility] [id number] Interpreted by: NOEL ADAMS MD Electronically signed by: Reviewed: Reviewed by Me Diagonstic Imaging: Xray Plain Films/CT/US/NM/MRI: chest (1v) Comments Post intubation chest x-ray shows the tube in satisfactory position to 3 cm above the jeffrey. Both lungs are inflated with stable interstitial lung disease and no pneumothorax. There is a G-tube does not cross the midline but it is not visible but below the stomach bubble. Reviewed: Reviewed by Me (ANGE DUENAS) Critical Care Note Critical Care Start Time: 18:50 Stop Time: 19:50 Total Time (minutes) 60 minutes Progress I went in to check on the patient given the results of the CT angiogram determined that he was no longer as alert. He would shake his head yes only told him that we needed to intubate him but he was not protecting his airway or breathing properly and his oxygen sats went from 99% down to 91% on this examination. Discussed the case over the phone with the and the patient both agree that intubation is appropriate and a accepting of the risks. The patient had a Burger, OG, intubation done by Daisha Booth 7.5 at 23 at the gums with good breath sounds colorimetric capnography paper change and no epigastric air sounds. Chest x-ray and ABG were ordered. Initial vent settings FiO2 70, tidal volume 400, heart rate 18, PEEP 6 and meters water pressure. Patient began to desat after the event was placed and was put back on Ambien mask. I was discovered that the vent was not a depth oxygen and replaced at same settings. The patient tolerated it intubation with succinylcholine and etomidate 80 and 20 mg respectively. His potassium was 4. No history of neuromuscular disease. Lowest oxygen saturation during intubation was 98%. The patient's oxygen sats are staying around 99%. An ABG is being sought and the patient's has been updated again via phone and she agrees with the plan to send the patient to [facility] since we do not have ICU beds here. (ANGE DUENAS) Departure Communication (Admissions) Time/Spoke to Admitting Phy: 17:32 Time/Spoke to Consulting Phy: 17:42 (SY KANG MD) Impression Primary Impression: Interstitial pulmonary fibrosis Additional Impressions: Pneumonia Qualified Codes: J18.9 - Pneumonia, unspecified organism Acute respiratory failure with hypoxia and hypercarbia Disposition: ADMITTED INPATIENT Condition: Stable Admissions Decision to Admit Reason: Admit from ER (General) Decision to Admit/Date: Sep 28, 2018 Time/Decision to Admit Time: 17:32 (SY KANG MD) Transfer Time Spoke to Accepting Phy: 19:[address] Figueroa: Critical care at [place], [place] accepts the patient since we are on ICU diversion. Transfer Facility: [place], [place] Method of Transfer: EMS (ANGE DUENAS) Departure-Patient Inst. Referrals: NO,LOCAL PHYSICIAN (PCP/Family) Primary Care Physician SY KANG MD Sep 28, 2018 18:01 ANGE DUENAS Sep 28, 2018 18:31
--- NOTE | 2018-09-28 18:58 | Diagnostic Imaging Report ---
PROCEDURE: CT angiography of the chest with contrast. TECHNIQUE: Multiple contiguous axial images were obtained through the chest after uneventful bolus administration of intravenous contrast. 3D reconstructed CTA MIP acquisitions were also performed. Auto Exposure Controls were utilized during the CT exam to meet ALARA standards for radiation dose reduction. DATE: September 28, 2018. COMPARISON: Chest radiograph September 28, 2018. CT neck and chest August 13, 2017. INDICATION: 62-year-old male, weakness, shortness of breath, cough. FINDINGS: There is extensive multifocal bilateral tree-in-bud nodularity. There are predominantly linear and wedge-shaped areas of consolidation in the right middle lobe additionally present. There are peripheral predominantly linear opacities in the right lower lobe which were also present. There is nonspecific opacification within the right the middle lobe and right lower lobe bronchi. There is bronchial wall thickening diffusely. There is also nonspecific partial opacification within left lower lobe and left upper lobe bronchi with left-sided bronchial wall thickening. There are additional areas of linear and additional nonspecific opacification in the right lung apex and left lung apex. There are mild peripheral linear opacities in the left upper lobe and left lower lobe also present. There is no pneumothorax. There is no sizable pleural effusion. There is no identified pulmonary embolus. The main pulmonary artery is normal in caliber. The heart is not enlarged. There is no pericardial effusion. There is a right hilar lymph node measuring 11 mm in short axis and an additional abnormally enlarged right hilar lymph nodes. There are also mildly prominent abnormally enlarged left hilar lymph nodes as well as multiple subcarinal, left paratracheal, and subcentimeter short axis AP window lymph nodes. There is no identified abnormally enlarged axillary lymph node. The visualized portions of the upper abdomen are grossly unremarkable in appearance. There is avascular necrosis involving the right humeral head best illustrated on axial image 23 and adjacent sequential images. IMPRESSION: CT CHEST. 1. Extensive multifocal bilateral tree in bud nodularity. This most likely relates to a process spreading via endobronchial means which is most typically an infectious bronchiolitis or aspiration. Atypical infectious etiologies are in the differential diagnosis. These are new findings since the prior CT chest of August 13, 2017. 2. Multifocal bilateral bronchial wall thickening and nonspecific opacification within the airways which may be related to the above process. 3. Abnormally enlarged bilateral hilar and additional mediastinal lymph nodes likely relating to the history of tree-in-bud nodular consolidative process. 4. No identified pulmonary embolus. 5. Avascular necrosis involving the right humeral head. Dictated by: Dictated on workstation # [id number]
[2018-09-28] MEDS ORDERED: PROPOFOL DRIP (ICU) 100 ML IV ONE (19:07)
[2018-09-28] MEDS ORDERED: NS IV 1000 ML 1,000 ML ONE (19:09)
--- NOTE | 2018-09-28 19:30 | NUR ---
1910: Upon entering room mental status change noted. Pt noted to be pale, diaphoretic, and lethargic. Provider spoke with pt regarding need for intubation. Pt verbalized understanding. 191: Juany contacted. Juany gave verbal consent for pt intubation d/t decline in status. 191: NS bolus initiated. 191: 20mg etomidate. 1916: 80mg succinylcholine. 1917: Time of intubation by Scar Booth aprn. 24" @ [facility]. 7.5 ET tube. Bilat breath sounds heard with positive color change. RT in room and initiated vent setting per provider order. Tidal volume 350 Resp Rate 16 Fio2 70% Peep 6 2019: 20g IV accessed to lt wrist by SHORTY Can. 1919: Diprivan initiated @ 20mcg/kg/min. 1922: 16 Fr OG placed beside ET tube. 1924: 16 Fr pham catheter placed. 0: Urine specimen sent to lab.
[2018-09-28 19:39] LABS: BILIRUBIN,URINE NEGATIVE (NEGATIVE); CLARITY,URINE CLEAR; COLOR,URINE YELLOW; GLUCOSE, URINE (UA) NEGATIVE (NEGATIVE); KETONES,URINE NEGATIVE (NEGATIVE); LEUKOCYTE ESTERASE ,URINE NEGATIVE (NEGATIVE); NITRITE,URINE NEGATIVE (NEGATIVE); PH,URINE 6.5 (5-9); PROTEIN,URINE 2+ (NEGATIVE); UROBILINOGEN,URINE NORMAL (NORMAL)
[2018-09-28 19:45] LABS: RBC,URINE RARE /HPF; WBC,URINE RARE /HPF
[2018-09-28 19:46] LABS: BACTERIA,URINE TRACE /HPF; CALCIUM OXALATE CRYSTALS,UR RARE /LPF; SQUAMOUS EPITHELIAL CELL,UR RARE /HPF
[2018-09-28 19:58] LABS: ABG BASE EXCESS 5.6 MMOL/L (-2.5-2.5); ABG OXYGEN SATURATION 94 % (94-100); ABG PCO2 70 MMHG (35-45); ABG PO2 84 MMHG (79-93); ABG TCO2 34.3 MMOL/L (21.0-31.0)
[2018-09-28 19:59] LABS: ALLENS TEST YES-POS
[2018-09-28 20:00] LABS: INSPIRED O2 70%; PATIENT TEMP 97.9; VENTILATOR YES
[2018-09-28 20:01] LABS: ABG PH 7.28 (7.37-7.43)
[2018-09-28 20:06] VITALS: BP 121/74
[2018-09-28] MEDS ORDERED: NS (IVPB) 250 ML ONE (20:30)
[2018-09-28] MEDS ORDERED: NOREPINEPHRINE 4 MG/4 ML (LEVOPHED) AMP IV ONE (20:30)
--- NOTE | 2018-09-28 20:59 | NUR ---
1936: Diprivan increased to 30 mcg/kg/min. 1939: Diprivan increased to 40 mcg/kg/min. 1939: RT changed vent setting change per provider order. Tidal volume 400 Resp rate 16 Fio2 70% Peep 6 1940: 5mg Versed 1947: Decreased Diprivan 20mcg/kg/min. 1953: Dr. Duenas speaking with pt , Juany, regarding pt status and transfer to [facility]. 2001: Rt changed vent setting per provider order. Tidal vol.500 Resp rate 16 Fio2 70% Peep 6 2021: Diprivan increased to 35mcg/kg/min. 2022: 5mg versed 2033: RT vent setting change per provider order. Tidal Vol. 600 Fio2 90% Resp. rate 20 Peep 5 2037: Diprivan increased to 30mcg/kg/min. 2043: Levophed initiated to rt chest wall port acess @ 0.1mcg/kg/min. 2058: RT changed vent setting per provider order. Fio2 70%
[2018-09-28] MEDS ORDERED: NS IV 1000 ML 1,000 ML IV ONE (21:00)
[2018-09-28] MEDS ORDERED: PROPOFOL DRIP (ICU) 100 ML IV SCH (21:00)
[2018-09-28] MEDS ORDERED: NOREPINEPHRINE 4 MG in NS (IVPB) 250 ML IV SCH (21:00)
[2018-09-28 21:06] LABS: ABG BASE EXCESS 5.3 MMOL/L (-2.5-2.5); ABG OXYGEN SATURATION 97 % (94-100); ABG PCO2 60 MMHG (35-45); ABG PO2 94 MMHG (79-93); ABG TCO2 33.1 MMOL/L (21.0-31.0)
[2018-09-28 21:07] LABS: ALLENS TEST YES-POS; INSPIRED O2 90%; PATIENT TEMP 96.6; VENTILATOR YES
[2018-09-28 21:08] LABS: ABG PH 7.33 (7.37-7.43)
--- NOTE | 2018-09-28 21:16 | Diagnostic Imaging Report ---
EXAMINATION: Chest radiograph, portable AP view. DATE: September 28, 2018 at 1956 hours. INDICATION: 62-year-old male, respiratory distress and weakness. COMPARISON: September 28, 2018 at 1636 hrs. FINDINGS: The endotracheal tube is approximately 5.6 cm above the jeffrey. The nasogastric tube extends below the [id number]. Right-sided port catheter tip overlies the lower SVC. Stable overall appearance of the cardiomediastinal silhouette. There are bilateral predominantly interstitial lung opacities. There does appear to be interval improved aeration of the right lung base. Otherwise, the lung aeration appears essentially unchanged. IMPRESSION: 1. Newly placed endotracheal tube and nasogastric tube. 2. Redemonstrated predominantly bilateral interstitial opacities. Correlating with recent CT imaging, these relate to extensive tree in bud nodular opacities and process spreading via endobronchial means. Dictated by: Dictated on workstation # [id number]
[2018-09-28 21:23] VITALS: BP 132/66
== END 2018-09-28 21:24 | disposition short-term general hospital (02) ==
LOC: EDUNIT# 16:00 → ER 16:02
DX: J96.02 Acute respiratory failure with hypercapnia (principal); J96.01 Acute respiratory failure with hypoxia; J18.9 Pneumonia, unspecified organism; J84.10 Pulmonary fibrosis, unspecified; J44.9 Chronic obstructive pulmonary disease, unspecified; G40.909 Epilepsy, unspecified, not intractable, without status epilepticus; F41.9 Anxiety disorder, unspecified; F32.9 Major depressive disorder, single episode, unspecified; F17.210 Nicotine dependence, cigarettes, uncomplicated; Z79.51 Long term (current) use of inhaled steroids; Z85.828 Personal history of other malignant neoplasm of skin
CPT/HCPCS: 31500; 36415; 36600; 51702; 71045; 71275; 80053; 81000; 82805; 83605; 83880; 84484; 85007; 85027; 85610; 85730; 87040; 93005; 94640; 94799; 99291; 99292